=== PATIENT | male | born 1940 | race Caucasian/White ===

== ENCOUNTER 2017-09-29 17:10 | Inpatient (IN) | payer OTHER ==
[2017-09-29 17:41] LABS: ADD MAN DIFF? NO
[2017-09-29 17:43] LABS: WHITE BLOOD COUNT 12.8 10^3/ul (4.8-10.8)
[2017-09-29 17:43] LABS: BASOPHILS % 0.2 % (0.0-2.0); EOSINOPHILS # 0.3 10^3/ul (0.0-0.5); EOSINOPHILS % 2.1 % (0.0-7.0); HEMATOCRIT 40.1 % (42.0-52.0); HEMOGLOBIN 13.5 g/dl (14.0-18.0); LYMPHOCYTES # 1.6 10^3/ul (0.8-2.9); LYMPHOCYTES % 12.7 % (15.0-51.0); MEAN CORPUSCULAR HEMOGLOBIN 31.9 pg (29.0-33.0); MEAN CORPUSCULAR HGB CONC 33.7 g/dl (32.0-37.0); MEAN CORPUSCULAR VOLUME 94.8 fl (82.0-101.0); MEAN PLATELET VOLUME 9.2 fl (7.4-10.4); MONOCYTE # 0.4 10^3/ul (0.3-0.9); MONOCYTES % 3.4 % (0.0-11.0); NEUTROPHIL # 10.4 10^3/ul (1.6-7.5); NEUTROPHILS % 81.4 % (39.0-77.0); PLATELET COUNT 480 10^3/UL (140-415); RED BLOOD COUNT 4.23 10^6/ul (4.70-6.10); RED CELL DISTRIBUTION WIDTH 12.7 % (11.5-14.5)
[2017-09-29] MEDS: SOD CHLORIDE 0.9% 500 ML IV (17:57)
[2017-09-29] MEDS: ONDANSETRON 4 MG INJ IV ×2 (17:58→22:04)
[2017-09-29 18:02] LABS: ALANINE AMINOTRANSFERASE 43 IU/L (13-69); ALKALINE PHOSPHATASE 67 IU/L (42-121); ANION GAP 22 (8-16); ASPARTATE AMINO TRANSFERASE 44 IU/L (15-46); BILIRUBIN,INDIRECT 0.4 mg/dl (0-1.1); BILIRUBIN,TOTAL 0.4 mg/dl (0.2-1.3); BLOOD UREA NITROGEN 19 mg/dl (7-20); CALCIUM 9.8 mg/dl (8.4-10.2); CARBON DIOXIDE 27 mmol/L (21-31); CHLORIDE 99 mmol/L (97-110); GLUCOSE 184 mg/dl (70-220); LIPASE 128 U/L (23-300); POTASSIUM 4.2 mmol/L (3.5-5.1); SODIUM 144 mmol/L (135-144)
[2017-09-29 18:03] LABS: ALBUMIN 4.6 g/dl (3.3-4.9); ALBUMIN/GLOBULIN RATIO 1.21; TOTAL PROTEIN 8.4 g/dl (6.1-8.1)
[2017-09-29 18:58] LABS: TROPONIN-I < 0.010 ng/ml (0.000-0.120)
[2017-09-29] MEDS ORDERED: FAMOTIDINE 20 MG TAB PO (19:09)
[2017-09-29] MEDS ORDERED: LIDOCAINE/MYLANTA 40 ML BTL PO (19:09)
[2017-09-29] MEDS: FAMOTIDINE 20 MG INJ IV (20:15)
[2017-09-29] MEDS ORDERED: ACETAMINOPHEN 325 MG TAB PO (21:30)
[2017-09-29] MEDS: morphine 4 MG/ML VIAL IV (22:04)
[2017-09-29] MEDS: D5W-0.45 NACL + KCL 10 MEQ 1,000 ML IV (23:45)
[2017-09-29] MEDS: PIPER-TAZO 3.375 GM IV (PMX) 100 ML IVPB (23:46)
[2017-09-30] MEDS: PANTOPRAZOLE 40 MG INJ IV (05:50)
[2017-09-30] MEDS: PIPER-TAZO 3.375 GM IV (PMX) 100 ML IVPB ×3 (05:51→21:09)
[2017-09-30 06:04] LABS: ADD MAN DIFF? NO
[2017-09-30 06:16] LABS: BASOPHILS % 0.3 % (0.0-2.0); EOSINOPHILS # 0.3 10^3/ul (0.0-0.5); EOSINOPHILS % 2.7 % (0.0-7.0); HEMATOCRIT 35.3 % (42.0-52.0); HEMOGLOBIN 11.6 g/dl (14.0-18.0); LYMPHOCYTES # 1.4 10^3/ul (0.8-2.9); LYMPHOCYTES % 12.2 % (15.0-51.0); MEAN CORPUSCULAR HEMOGLOBIN 31.6 pg (29.0-33.0); MEAN CORPUSCULAR HGB CONC 32.9 g/dl (32.0-37.0); MEAN CORPUSCULAR VOLUME 96.2 fl (82.0-101.0); MEAN PLATELET VOLUME 9.3 fl (7.4-10.4); MONOCYTE # 0.6 10^3/ul (0.3-0.9); MONOCYTES % 5.6 % (0.0-11.0); NEUTROPHIL # 8.8 10^3/ul (1.6-7.5); NEUTROPHILS % 78.8 % (39.0-77.0); PLATELET COUNT 415 10^3/UL (140-415); RED BLOOD COUNT 3.67 10^6/ul (4.70-6.10); RED CELL DISTRIBUTION WIDTH 12.7 % (11.5-14.5)
[2017-09-30 06:16] LABS: WHITE BLOOD COUNT 11.2 10^3/ul (4.8-10.8)
[2017-09-30 07:11] LABS: ALANINE AMINOTRANSFERASE 37 IU/L (13-69); ALBUMIN 3.8 g/dl (3.3-4.9); ALBUMIN/GLOBULIN RATIO 1.22; ALKALINE PHOSPHATASE 46 IU/L (42-121); ANION GAP 16 (8-16); ASPARTATE AMINO TRANSFERASE 34 IU/L (15-46); BILIRUBIN,INDIRECT 0.4 mg/dl (0-1.1); BILIRUBIN,TOTAL 0.4 mg/dl (0.2-1.3); BLOOD UREA NITROGEN 20 mg/dl (7-20); CALCIUM 8.7 mg/dl (8.4-10.2); CARBON DIOXIDE 29 mmol/L (21-31); CHLORIDE 101 mmol/L (97-110); CREATININE 1.35 mg/dl (0.61-1.24); GLUCOSE 128 mg/dl (70-220); POTASSIUM 3.6 mmol/L (3.5-5.1); SODIUM 142 mmol/L (135-144); TOTAL PROTEIN 6.9 g/dl (6.1-8.1)
[2017-09-30] MEDS: DIATR MEGLU/DIATRIZOATE SODIUM 120 ML BTL (10:43)
[2017-09-30] MEDS ORDERED: HYDROmorphONE 0.5 MG/0.5 ML SYG IV (11:30)
[2017-09-30] MEDS: D5W-0.45 NACL + KCL 10 MEQ 1,000 ML IV ×2 (12:48→20:09)
[2017-09-30] MEDS ORDERED: DEXTROSE 50% 50 ML SYRINGE IV ×2 (19:00)
[2017-09-30] MEDS ORDERED: GLUCOSE GEL 15 GRAM TUBE PO ×2 (19:00)
[2017-09-30] MEDS ORDERED: GLUCOSE GEL 15 GRAM TUBE BUCCAL (19:00)
[2017-09-30] MEDS ORDERED: GLUCAGON 1 MG INJ IM (19:00)
[2017-09-30] MEDS: INSULIN ASPART [NOVOLOG] 3 ML PEN SC (21:00)
[2017-10-01] MEDS: ACCU-CHEK XX (01:03)
[2017-10-01] MEDS ORDERED: ACCU-CHEK XX (02:00)
[2017-10-01] MEDS: D5W-0.45 NACL + KCL 10 MEQ 1,000 ML IV (02:12)
[2017-10-01] MEDS: PIPER-TAZO 3.375 GM IV (PMX) 100 ML IVPB ×3 (05:40→21:03)
[2017-10-01] MEDS: PANTOPRAZOLE 40 MG INJ IV (05:40)
[2017-10-01 05:52] LABS: ADD MAN DIFF? NO
[2017-10-01 05:54] LABS: BASOPHILS % 0.5 % (0.0-2.0); EOSINOPHILS # 0.6 10^3/ul (0.0-0.5); EOSINOPHILS % 7.7 % (0.0-7.0); HEMATOCRIT 34.3 % (42.0-52.0); HEMOGLOBIN 11.1 g/dl (14.0-18.0); LYMPHOCYTES # 1.6 10^3/ul (0.8-2.9); LYMPHOCYTES % 20.3 % (15.0-51.0); MEAN CORPUSCULAR HGB CONC 32.4 g/dl (32.0-37.0); MEAN CORPUSCULAR VOLUME 95.8 fl (82.0-101.0); MEAN PLATELET VOLUME 9.3 fl (7.4-10.4); MONOCYTE # 0.5 10^3/ul (0.3-0.9); MONOCYTES % 6.6 % (0.0-11.0); NEUTROPHIL # 5.2 10^3/ul (1.6-7.5); NEUTROPHILS % 64.5 % (39.0-77.0); PLATELET COUNT 375 10^3/UL (140-415); RED BLOOD COUNT 3.58 10^6/ul (4.70-6.10); RED CELL DISTRIBUTION WIDTH 12.6 % (11.5-14.5)
[2017-10-01 05:54] LABS: WHITE BLOOD COUNT 8.1 10^3/ul (4.8-10.8)
[2017-10-01 06:33] LABS: ANION GAP 13 (8-16); BLOOD UREA NITROGEN 20 mg/dl (7-20); CALCIUM 8.8 mg/dl (8.4-10.2); CARBON DIOXIDE 27 mmol/L (21-31); CHLORIDE 107 mmol/L (97-110); CREATININE 1.33 mg/dl (0.61-1.24); GLUCOSE 113 mg/dl (70-220); POTASSIUM 3.8 mmol/L (3.5-5.1); SODIUM 143 mmol/L (135-144)
[2017-10-01] MEDS: INSULIN ASPART [NOVOLOG] 3 ML PEN SC ×4 (08:09→21:00)
[2017-10-01] MEDS: AMLODIPINE 10 MG TAB PO (13:37)
[2017-10-01 14:18] LABS: ANION GAP 14 (8-16); BLOOD UREA NITROGEN 18 mg/dl (7-20); CALCIUM 8.8 mg/dl (8.4-10.2); CARBON DIOXIDE 26 mmol/L (21-31); CHLORIDE 107 mmol/L (97-110); CREATININE 1.26 mg/dl (0.61-1.24); GLUCOSE 135 mg/dl (70-220); POTASSIUM 4.4 mmol/L (3.5-5.1); SODIUM 143 mmol/L (135-144)
[2017-10-01] MEDS ORDERED: BIMATOPROST 0.01% 2.5 ML BTL BOTH EYES (21:00)
[2017-10-01] MEDS: LATANOPROST 0.005% 2.5 ML OPH BOTH EYES (21:03)
[2017-10-01] MEDS: ATORVASTATIN 10 MG TAB PO (21:03)
[2017-10-02] MEDS: ACCU-CHEK XX (01:03)
[2017-10-02] MEDS: PIPER-TAZO 3.375 GM IV (PMX) 100 ML IVPB ×2 (05:26→13:57)
[2017-10-02] MEDS: PANTOPRAZOLE (EC) 40 MG TAB PO (05:26)
[2017-10-02 05:55] LABS: ADD MAN DIFF? NO
[2017-10-02 06:06] LABS: BASOPHIL # 0.1 10^3/ul (0.0-0.1); EOSINOPHILS # 0.7 10^3/ul (0.0-0.5); HEMATOCRIT 33.2 % (42.0-52.0); LYMPHOCYTES # 1.9 10^3/ul (0.8-2.9); LYMPHOCYTES % 24.2 % (15.0-51.0); MEAN CORPUSCULAR HEMOGLOBIN 32.1 pg (29.0-33.0); MEAN CORPUSCULAR HGB CONC 33.1 g/dl (32.0-37.0); MEAN CORPUSCULAR VOLUME 96.8 fl (82.0-101.0); MEAN PLATELET VOLUME 9.4 fl (7.4-10.4); MONOCYTE # 0.6 10^3/ul (0.3-0.9); MONOCYTES % 6.9 % (0.0-11.0); NEUTROPHIL # 4.7 10^3/ul (1.6-7.5); NEUTROPHILS % 58.5 % (39.0-77.0); PLATELET COUNT 385 10^3/UL (140-415); RED BLOOD COUNT 3.43 10^6/ul (4.70-6.10); RED CELL DISTRIBUTION WIDTH 12.4 % (11.5-14.5)
[2017-10-02] MEDS: INSULIN ASPART [NOVOLOG] 3 ML PEN SC ×2 (07:52→12:00)
[2017-10-02] MEDS: AMLODIPINE 10 MG TAB PO (07:52)
[2017-10-02 14:41] LABS: HEMOGLOBIN A1C 6.2 % (0-5.9)
== END 2017-10-02 15:30 | disposition home or self-care (01) | DRG 389 ==
LOC: E/R 17:10 → MS2 21:05
DX: K56.609 Unspecified intestinal obstruction, unspecified as to partial versus complete obstruction (principal); R65.10 Systemic inflammatory response syndrome (SIRS) of non-infectious origin without acute organ dysfunction; E11.9 Type 2 diabetes mellitus without complications; K76.0 Fatty (change of) liver, not elsewhere classified; I10 Essential (primary) hypertension; K20.9 Esophagitis, unspecified; I25.10 Atherosclerotic heart disease of native coronary artery without angina pectoris; E78.5 Hyperlipidemia, unspecified; E66.3 Overweight; Z68.28 Body mass index [BMI] 28.0-28.9, adult; Z79.4 Long term (current) use of insulin; Z90.79 Acquired absence of other genital organ(s)
CPT/HCPCS: 36415; 74018; 74176; 74250; 80048; 80053; 82962; 83036; 83690; 84484; 85025; 93005; 96374; 96375; 99285-25

== ENCOUNTER 2017-10-13 19:34 | Emergency (ER) | payer OTHER ==
[2017-10-13] MEDS: ONDANSETRON 4 MG INJ IV (21:18)
[2017-10-13] MEDS: morphine 4 MG/ML VIAL IV (21:18)
[2017-10-13] MEDS: CEFTRIAXONE 1 GM/50 ML (PMX) 50 ML IVPB (21:18)
[2017-10-13] MEDS: ACETAMINOPHEN 325 MG TAB PO (21:18)
[2017-10-13] MEDS: SODIUM CHLORIDE 0.9% 1L BAG IV* (21:24)
[2017-10-13 21:30] LABS: ADD MAN DIFF? NO
[2017-10-13 21:36] LABS: BASOPHILS % 0.4 % (0.0-2.0); EOSINOPHILS # 0.4 10^3/ul (0.0-0.5); EOSINOPHILS % 4.5 % (0.0-7.0); HEMATOCRIT 36.1 % (42.0-52.0); HEMOGLOBIN 11.9 g/dl (14.0-18.0); LYMPHOCYTES % 10.8 % (15.0-51.0); MEAN CORPUSCULAR HEMOGLOBIN 31.4 pg (29.0-33.0); MEAN CORPUSCULAR VOLUME 95.3 fl (82.0-101.0); MONOCYTE # 0.7 10^3/ul (0.3-0.9); MONOCYTES % 7.9 % (0.0-11.0); NEUTROPHIL # 6.8 10^3/ul (1.6-7.5); PLATELET COUNT 253 10^3/UL (140-415); RED BLOOD COUNT 3.79 10^6/ul (4.70-6.10); RED CELL DISTRIBUTION WIDTH 12.9 % (11.5-14.5)
[2017-10-13 21:40] LABS: ADD UMIC YES; UR ASCORBIC ACID NEGATIVE (NEGATIVE); UR BILIRUBIN (Dip) NEGATIVE (NEGATIVE); UR BLOOD (Dip) NEGATIVE (NEGATIVE); UR CLARITY CLEAR (CLEAR); UR COLOR YELLOW (YELLOW); UR GLUCOSE (Dip) NEGATIVE (NEGATIVE); UR KETONES (Dip) NEGATIVE (NEGATIVE); UR LEUKOCYTE ESTERASE (Dip) TRACE Leu/ul (NEGATIVE); UR NITRITE (Dip) NEGATIVE (NEGATIVE); UR RBC 2 /HPF (0-5); UR TOTAL PROTEIN (Dip) NEGATIVE (NEGATIVE); UR UROBILINOGEN (Dip) NEGATIVE (NEGATIVE); UR WBC 4 /HPF (0-5)
[2017-10-13 21:55] LABS: INR 1.02; PROTIME 13.5 Sec (11.9-14.9); PT RATIO 1.1
[2017-10-13 21:56] LABS: PARTIAL THROMBOPLASTIN TIME 31.5 Sec (25.0-35.0)
[2017-10-13 21:58] LABS: LACTIC ACID 1.6 mmol/L (0.5-2.0)
[2017-10-13 21:59] LABS: ALANINE AMINOTRANSFERASE 19 IU/L (13-69); ALBUMIN 4.4 g/dl (3.3-4.9); ALBUMIN/GLOBULIN RATIO 1.29; ALKALINE PHOSPHATASE 43 IU/L (42-121); ANION GAP 15 (8-16); ASPARTATE AMINO TRANSFERASE 22 IU/L (15-46); BILIRUBIN,INDIRECT 0.3 mg/dl (0-1.1); BILIRUBIN,TOTAL 0.3 mg/dl (0.2-1.3); BLOOD UREA NITROGEN 30 mg/dl (7-20); CALCIUM 9.4 mg/dl (8.4-10.2); CARBON DIOXIDE 26 mmol/L (21-31); CHLORIDE 102 mmol/L (97-110); GLUCOSE 143 mg/dl (70-220); POTASSIUM 3.7 mmol/L (3.5-5.1); SODIUM 139 mmol/L (135-144); TOTAL PROTEIN 7.8 g/dl (6.1-8.1)
[2017-10-13 22:10] LABS: TROPONIN-I < 0.010 ng/ml (0.000-0.120)
== END 2017-10-13 23:35 | disposition home or self-care (01) ==
LOC: E/R 23:35 → FTE 19:34
DX: N30.90 Cystitis, unspecified without hematuria (principal); E11.9 Type 2 diabetes mellitus without complications; I10 Essential (primary) hypertension; Z96.651 Presence of right artificial knee joint; Z79.84 Long term (current) use of oral hypoglycemic drugs
CPT/HCPCS: 36415; 71045; 74176; 80053; 81001; 83605; 84484; 85025; 85610; 85730; 87040; 87086; 93005; 96374; 96375; 99285-25

== ENCOUNTER 2018-06-13 09:39 | Inpatient (IN) | payer OTHER ==
[2018-06-13 10:23] LABS: ADD MAN DIFF? NO
[2018-06-13 10:25] LABS: WHITE BLOOD COUNT 14.6 10^3/ul (4.8-10.8)
[2018-06-13 10:25] LABS: BASOPHILS % 0.3 % (0.0-2.0); EOSINOPHILS % 0.1 % (0.0-7.0); HEMATOCRIT 37.2 % (42.0-52.0); HEMOGLOBIN 12.6 g/dl (14.0-18.0); LYMPHOCYTES # 1.3 10^3/ul (0.8-2.9); LYMPHOCYTES % 8.8 % (15.0-51.0); MEAN CORPUSCULAR HEMOGLOBIN 30.4 pg (29.0-33.0); MEAN CORPUSCULAR HGB CONC 33.9 g/dl (32.0-37.0); MEAN CORPUSCULAR VOLUME 89.9 fl (82.0-101.0); MEAN PLATELET VOLUME 10.5 fl (7.4-10.4); MONOCYTE # 0.9 10^3/ul (0.3-0.9); NEUTROPHIL # 12.3 10^3/ul (1.6-7.5); PLATELET COUNT 218 10^3/UL (140-415); RED BLOOD COUNT 4.14 10^6/ul (4.70-6.10); RED CELL DISTRIBUTION WIDTH 12.5 % (11.5-14.5)
[2018-06-13 10:27] LABS: ADD UMIC NO; UR ASCORBIC ACID NEGATIVE (NEGATIVE); UR BILIRUBIN (Dip) NEGATIVE (NEGATIVE); UR BLOOD (Dip) NEGATIVE (NEGATIVE); UR CLARITY CLEAR (CLEAR); UR COLOR YELLOW (YELLOW); UR GLUCOSE (Dip) NEGATIVE (NEGATIVE); UR KETONES (Dip) NEGATIVE (NEGATIVE); UR LEUKOCYTE ESTERASE (Dip) NEGATIVE Leu/ul (NEGATIVE); UR NITRITE (Dip) NEGATIVE (NEGATIVE); UR SPECIFIC GRAVITY (Dip) 1.016 (1.003-1.030); UR TOTAL PROTEIN (Dip) NEGATIVE (NEGATIVE); UR UROBILINOGEN (Dip) NEGATIVE (NEGATIVE)
[2018-06-13] MEDS: SODIUM CHLORIDE 0.9% 1L BAG IV* (10:31)
[2018-06-13] MEDS: CEFTRIAXONE 1 GM/50 ML (PMX) 50 ML IVPB (10:31)
[2018-06-13 10:44] LABS: ALANINE AMINOTRANSFERASE 19 IU/L (13-69); ALBUMIN 4.3 g/dl (3.3-4.9); ALKALINE PHOSPHATASE 57 IU/L (42-121); ANION GAP 14 (5-13); ASPARTATE AMINO TRANSFERASE 24 IU/L (15-46); BILIRUBIN,INDIRECT 0.8 mg/dl (0-1.1); BILIRUBIN,TOTAL 0.8 mg/dl (0.2-1.3); BLOOD UREA NITROGEN 20 mg/dl (7-20); CALCIUM 9.5 mg/dl (8.4-10.2); CARBON DIOXIDE 26 mmol/L (21-31); CHLORIDE 98 mmol/L (97-110); CREATININE 1.37 mg/dl (0.61-1.24); GLUCOSE 175 mg/dl (70-220); POTASSIUM 3.5 mmol/L (3.5-5.1); SODIUM 138 mmol/L (135-144); TOTAL PROTEIN 8.2 g/dl (6.1-8.1)
[2018-06-13 10:45] LABS: INR 1.11; PROTIME 14.4 Sec (11.9-14.9); PT RATIO 1.1
[2018-06-13 10:46] LABS: PARTIAL THROMBOPLASTIN TIME 35.4 Sec (23.0-35.0)
[2018-06-13 10:47] LABS: LACTIC ACID 1.5 mmol/L (0.5-2.0)
[2018-06-13] MEDS: ACETAMINOPHEN 500 MG TAB PO (10:52)
[2018-06-13 10:55] LABS: TROPONIN-I < 0.012 ng/ml (0.000-0.120)
[2018-06-13 15:11] LABS: LACTIC ACID 1.3 mmol/L (0.5-2.0)
[2018-06-13] MEDS: ACCU-CHEK XX ×2 (17:30→21:00)
[2018-06-13] MEDS ORDERED: GLUCOSE GEL 15 GRAM TUBE BUCCAL (17:30)
[2018-06-13] MEDS ORDERED: GLUCOSE GEL 15 GRAM TUBE PO ×2 (17:30)
[2018-06-13] MEDS ORDERED: DEXTROSE 50% 50 ML SYRINGE IV ×2 (17:30)
[2018-06-13] MEDS ORDERED: VANCOMYCIN IV PER PHARMACY XX (17:30)
[2018-06-13] MEDS ORDERED: GLUCAGON 1 MG INJ IM (17:30)
[2018-06-13] MEDS: INSULIN ASPART [NOVOLOG] 3 ML PEN SC ×2 (17:50→20:44)
[2018-06-13 17:52] LABS: THYROID STIMULATING HORMONE 0.736 MIU/L (0.465-4.680)
[2018-06-13] MEDS: metFORMIN 500 MG TAB PO (18:07)
[2018-06-13] MEDS: LEVOFLOXACIN 500MG/D5W (PMX) 100 ML IVPB (18:38)
[2018-06-13] MEDS: VANCOMYCIN HCL 1.75 GM in SOD CHLORIDE 0.9% 500 ML IVPB (19:57)
[2018-06-13] MEDS: ACETAMINOPHEN 325 MG TAB PO (19:58)
[2018-06-13] MEDS: ATORVASTATIN 10 MG TAB PO (20:41)
[2018-06-13] MEDS: BIMATOPROST 0.01% 2.5 ML BTL BOTH EYES (20:43)
[2018-06-14] MEDS: traMADol 50 MG TAB PO ×2 (00:18→21:33)
[2018-06-14] MEDS: ACCU-CHEK XX ×5 (01:07→21:00)
[2018-06-14] MEDS: ACETAMINOPHEN 325 MG TAB PO ×3 (02:23→19:41)
[2018-06-14 05:58] LABS: ADD MAN DIFF? NO
[2018-06-14 06:21] LABS: WHITE BLOOD COUNT 12.6 10^3/ul (4.8-10.8)
[2018-06-14 06:21] LABS: BASOPHIL # 0.1 10^3/ul (0.0-0.1); BASOPHILS % 0.5 % (0.0-2.0); EOSINOPHILS % 0.2 % (0.0-7.0); HEMATOCRIT 33.6 % (42.0-52.0); HEMOGLOBIN 11.2 g/dl (14.0-18.0); LYMPHOCYTES % 7.6 % (15.0-51.0); MEAN CORPUSCULAR HEMOGLOBIN 30.6 pg (29.0-33.0); MEAN CORPUSCULAR HGB CONC 33.3 g/dl (32.0-37.0); MEAN CORPUSCULAR VOLUME 91.8 fl (82.0-101.0); MEAN PLATELET VOLUME 10.9 fl (7.4-10.4); MONOCYTES % 7.6 % (0.0-11.0); NEUTROPHIL # 10.5 10^3/ul (1.6-7.5); NEUTROPHILS % 83.3 % (39.0-77.0); PLATELET COUNT 195 10^3/UL (140-415); RED BLOOD COUNT 3.66 10^6/ul (4.70-6.10); RED CELL DISTRIBUTION WIDTH 12.6 % (11.5-14.5)
[2018-06-14 06:53] LABS: ANION GAP 14 (5-13); BLOOD UREA NITROGEN 19 mg/dl (7-20); CALCIUM 8.7 mg/dl (8.4-10.2); CARBON DIOXIDE 26 mmol/L (21-31); CHLORIDE 100 mmol/L (97-110); CREATININE 1.25 mg/dl (0.61-1.24); GLUCOSE 120 mg/dl (70-220); MAGNESIUM 1.7 mg/dl (1.7-2.5); PHOSPHORUS 2.8 mg/dl (2.5-4.9); POTASSIUM 3.3 mmol/L (3.5-5.1); SODIUM 140 mmol/L (135-144)
[2018-06-14] MEDS: INSULIN ASPART [NOVOLOG] 3 ML PEN SC ×4 (08:00→21:00)
[2018-06-14] MEDS: BENAZEPRIL 40 MG TAB PO (08:44)
[2018-06-14] MEDS: metFORMIN 500 MG TAB PO ×2 (08:44→17:15)
[2018-06-14] MEDS: AMLODIPINE 10 MG TAB PO (08:44)
[2018-06-14] MEDS: HYDROCHLOROTHIAZIDE 25 MG TAB PO (08:44)
[2018-06-14 15:51] LABS: C-REACTIVE PROTEIN 25.4 mg/dl (0.0-0.9)
[2018-06-14 16:01] LABS: ERYTHROCYTE SEDIMENTATION RATE 65 mm/Hr (0-20)
[2018-06-14] MEDS: POTASSIUM CHLORIDE (SR) 20 MEQ TAB PO (17:16)
[2018-06-14] MEDS: LEVOFLOXACIN 500MG/D5W (PMX) 100 ML IVPB (17:17)
[2018-06-14] MEDS: VANCOMYCIN HCL 1.5 GM in SOD CHLORIDE 0.9% 250 ML IVPB (21:31)
[2018-06-14] MEDS: ATORVASTATIN 10 MG TAB PO (21:32)
[2018-06-14] MEDS: BIMATOPROST 0.01% 2.5 ML BTL BOTH EYES (21:33)
[2018-06-15] MEDS: ACCU-CHEK XX ×5 (01:35→21:00)
[2018-06-15 06:02] LABS: ADD MAN DIFF? NO
[2018-06-15 06:03] LABS: BASOPHILS % 0.4 % (0.0-2.0); EOSINOPHILS # 0.2 10^3/ul (0.0-0.5); EOSINOPHILS % 1.5 % (0.0-7.0); HEMATOCRIT 34.6 % (42.0-52.0); HEMOGLOBIN 11.5 g/dl (14.0-18.0); LYMPHOCYTES # 1.2 10^3/ul (0.8-2.9); LYMPHOCYTES % 11.6 % (15.0-51.0); MEAN CORPUSCULAR HEMOGLOBIN 30.3 pg (29.0-33.0); MEAN CORPUSCULAR HGB CONC 33.2 g/dl (32.0-37.0); MEAN CORPUSCULAR VOLUME 91.3 fl (82.0-101.0); MEAN PLATELET VOLUME 10.7 fl (7.4-10.4); MONOCYTE # 0.9 10^3/ul (0.3-0.9); MONOCYTES % 8.5 % (0.0-11.0); NEUTROPHIL # 8.2 10^3/ul (1.6-7.5); NEUTROPHILS % 77.4 % (39.0-77.0); PLATELET COUNT 217 10^3/UL (140-415); RED BLOOD COUNT 3.79 10^6/ul (4.70-6.10); RED CELL DISTRIBUTION WIDTH 12.8 % (11.5-14.5)
[2018-06-15 06:03] LABS: WHITE BLOOD COUNT 10.6 10^3/ul (4.8-10.8)
[2018-06-15 06:26] LABS: ANION GAP 10 (5-13); BLOOD UREA NITROGEN 20 mg/dl (7-20); CALCIUM 9.3 mg/dl (8.4-10.2); CARBON DIOXIDE 27 mmol/L (21-31); CHLORIDE 102 mmol/L (97-110); CREATININE 1.34 mg/dl (0.61-1.24); GLUCOSE 114 mg/dl (70-220); POTASSIUM 4.3 mmol/L (3.5-5.1); SODIUM 139 mmol/L (135-144)
[2018-06-15] MEDS: INSULIN ASPART [NOVOLOG] 3 ML PEN SC ×4 (08:00→21:00)
[2018-06-15] MEDS: AMLODIPINE 10 MG TAB PO (08:12)
[2018-06-15] MEDS: metFORMIN 500 MG TAB PO ×2 (08:12→17:28)
[2018-06-15] MEDS: HYDROCHLOROTHIAZIDE 25 MG TAB PO (08:12)
[2018-06-15] MEDS: BENAZEPRIL 40 MG TAB PO (08:12)
[2018-06-15] MEDS: ACETAMINOPHEN 325 MG TAB PO ×3 (12:07→22:53)
[2018-06-15 14:08] LABS: HAAIG REFLEX REFLEX FILED
[2018-06-15] MEDS: BARIUM SULF 2% 450 ML BTL (BERRY SMOOTHIE) PO (14:25)
[2018-06-15 14:57] LABS: D-DIMER 765.05 ng/ml (<460)
[2018-06-15 15:04] LABS: HEPATITIS B SURFACE ANTIGEN NEGATIVE (NEGATIVE)
[2018-06-15] MEDS: IOHEXOL 14.3 MG(I)/ML (ADULT) BTL PO (15:20)
[2018-06-15 15:22] LABS: HEPATITIS B CORE ANTIBODY REACTIVE (NEGATIVE); HEPATITIS C VIRAL ANTIBODY NEGATIVE (NEGATIVE)
[2018-06-15] MEDS: BIMATOPROST 0.01% 2.5 ML BTL BOTH EYES (21:27)
[2018-06-15] MEDS: ATORVASTATIN 10 MG TAB PO (21:27)
[2018-06-15] MEDS: CEFEPIME 1GM/50 ML (PMX) 50 ML IVPB (21:27)
[2018-06-15] MEDS: VANCOMYCIN HCL 1.5 GM in SOD CHLORIDE 0.9% 250 ML IVPB (22:19)
[2018-06-15] MEDS: ZOLPIDEM 5 MG TAB PO (22:53)
[2018-06-16] MEDS: ACCU-CHEK XX ×5 (01:03→20:27)
[2018-06-16] MEDS: ACETAMINOPHEN 325 MG TAB PO ×3 (03:18→18:11)
[2018-06-16 07:08] LABS: ADD MAN DIFF? NO
[2018-06-16 07:14] LABS: WHITE BLOOD COUNT 8.2 10^3/ul (4.8-10.8)
[2018-06-16 07:14] LABS: BASOPHILS % 0.5 % (0.0-2.0); EOSINOPHILS # 0.1 10^3/ul (0.0-0.5); EOSINOPHILS % 1.6 % (0.0-7.0); HEMATOCRIT 33.4 % (42.0-52.0); HEMOGLOBIN 11.3 g/dl (14.0-18.0); LYMPHOCYTES % 11.8 % (15.0-51.0); MEAN CORPUSCULAR HEMOGLOBIN 30.9 pg (29.0-33.0); MEAN CORPUSCULAR HGB CONC 33.8 g/dl (32.0-37.0); MEAN CORPUSCULAR VOLUME 91.3 fl (82.0-101.0); MEAN PLATELET VOLUME 10.5 fl (7.4-10.4); MONOCYTE # 0.9 10^3/ul (0.3-0.9); MONOCYTES % 11.2 % (0.0-11.0); NEUTROPHIL # 6.1 10^3/ul (1.6-7.5); NEUTROPHILS % 74.4 % (39.0-77.0); PLATELET COUNT 243 10^3/UL (140-415); RED BLOOD COUNT 3.66 10^6/ul (4.70-6.10); RED CELL DISTRIBUTION WIDTH 12.9 % (11.5-14.5)
[2018-06-16 07:38] LABS: ANION GAP 9 (5-13); BLOOD UREA NITROGEN 20 mg/dl (7-20); CALCIUM 9.4 mg/dl (8.4-10.2); CARBON DIOXIDE 29 mmol/L (21-31); CHLORIDE 101 mmol/L (97-110); GLUCOSE 107 mg/dl (70-220); POTASSIUM 3.9 mmol/L (3.5-5.1); SODIUM 139 mmol/L (135-144)
[2018-06-16] MEDS: metFORMIN 500 MG TAB PO (08:00)
[2018-06-16] MEDS: INSULIN ASPART [NOVOLOG] 3 ML PEN SC ×4 (08:00→20:21)
[2018-06-16] MEDS: BENAZEPRIL 40 MG TAB PO (08:24)
[2018-06-16] MEDS: HYDROCHLOROTHIAZIDE 25 MG TAB PO (08:24)
[2018-06-16] MEDS: AMLODIPINE 10 MG TAB PO (08:25)
[2018-06-16] MEDS: ENOXAPARIN 40 MG/0.4 ML SYG SC (08:25)
[2018-06-16] MEDS: CEFEPIME 1GM/50 ML (PMX) 50 ML IVPB (08:25)
[2018-06-16] MEDS: MEROPENEM 1 GM/50ML(PMX) 50 ML IVPB ×2 (15:06→20:22)
[2018-06-16] MEDS: SOD CHLORIDE 0.9% 1,000 ML IV ×2 (15:57→20:24)
[2018-06-16] MEDS: BIMATOPROST 0.01% 2.5 ML BTL BOTH EYES (20:22)
[2018-06-16] MEDS: ATORVASTATIN 10 MG TAB PO (20:23)
[2018-06-16] MEDS: LACTOBACILLUS RHAMNOSUS CAP PO (20:23)
[2018-06-16 20:45] LABS: VANCOMYCIN,TROUGH 9.7 ug/ml (10.0-20.0)
[2018-06-16] MEDS: VANCOMYCIN HCL 1.5 GM in SOD CHLORIDE 0.9% 250 ML IVPB (21:08)
[2018-06-16] MEDS: ZOLPIDEM 5 MG TAB PO (22:27)
[2018-06-17] MEDS: ACCU-CHEK XX ×5 (01:02→21:20)
[2018-06-17] MEDS: ACETAMINOPHEN 325 MG TAB PO ×4 (01:41→16:21)
[2018-06-17 07:35] LABS: ADD MAN DIFF? NO
[2018-06-17 07:37] LABS: WHITE BLOOD COUNT 9.2 10^3/ul (4.8-10.8)
[2018-06-17 07:37] LABS: BASOPHILS % 0.4 % (0.0-2.0); EOSINOPHILS # 0.2 10^3/ul (0.0-0.5); EOSINOPHILS % 1.7 % (0.0-7.0); HEMATOCRIT 32.7 % (42.0-52.0); HEMOGLOBIN 10.9 g/dl (14.0-18.0); LYMPHOCYTES # 1.3 10^3/ul (0.8-2.9); LYMPHOCYTES % 14.3 % (15.0-51.0); MEAN CORPUSCULAR HEMOGLOBIN 30.8 pg (29.0-33.0); MEAN CORPUSCULAR HGB CONC 33.3 g/dl (32.0-37.0); MEAN CORPUSCULAR VOLUME 92.4 fl (82.0-101.0); MEAN PLATELET VOLUME 10.3 fl (7.4-10.4); MONOCYTE # 1.1 10^3/ul (0.3-0.9); MONOCYTES % 11.8 % (0.0-11.0); NEUTROPHIL # 6.5 10^3/ul (1.6-7.5); NEUTROPHILS % 70.9 % (39.0-77.0); PLATELET COUNT 267 10^3/UL (140-415); RED BLOOD COUNT 3.54 10^6/ul (4.70-6.10)
[2018-06-17] MEDS: INSULIN ASPART [NOVOLOG] 3 ML PEN SC ×4 (08:00→20:07)
[2018-06-17] MEDS: BENAZEPRIL 40 MG TAB PO (08:07)
[2018-06-17] MEDS: AMLODIPINE 10 MG TAB PO (08:07)
[2018-06-17] MEDS: MEROPENEM 1 GM/50ML(PMX) 50 ML IVPB ×2 (08:07→20:07)
[2018-06-17] MEDS: LACTOBACILLUS RHAMNOSUS CAP PO ×2 (08:07→20:08)
[2018-06-17 08:08] LABS: ALANINE AMINOTRANSFERASE 73 IU/L (13-69); ALBUMIN 3.6 g/dl (3.3-4.9); ALBUMIN/GLOBULIN RATIO 1.05; ALKALINE PHOSPHATASE 107 IU/L (42-121); ANION GAP 8 (5-13); ASPARTATE AMINO TRANSFERASE 72 IU/L (15-46); BILIRUBIN,INDIRECT 0.6 mg/dl (0-1.1); BILIRUBIN,TOTAL 0.6 mg/dl (0.2-1.3); BLOOD UREA NITROGEN 22 mg/dl (7-20); CARBON DIOXIDE 28 mmol/L (21-31); CHLORIDE 103 mmol/L (97-110); CREATININE 1.51 mg/dl (0.61-1.24); GLUCOSE 107 mg/dl (70-220); POTASSIUM 3.8 mmol/L (3.5-5.1); SODIUM 139 mmol/L (135-144)
[2018-06-17] MEDS: ENOXAPARIN 40 MG/0.4 ML SYG SC (08:14)
[2018-06-17 08:35] LABS: PROSTATE SPECIFIC ANTIGEN 0.5 ng/ml (0.0-4.0)
[2018-06-17] MEDS: SOD CHLORIDE 0.9% 1,000 ML IV ×2 (12:18→22:00)
[2018-06-17] MEDS: ATORVASTATIN 10 MG TAB PO (20:08)
[2018-06-17] MEDS: BIMATOPROST 0.01% 2.5 ML BTL BOTH EYES (20:08)
[2018-06-17] MEDS: VANCOMYCIN HCL 1.75 GM in SOD CHLORIDE 0.9% 500 ML IVPB (21:27)
[2018-06-17] MEDS: ZOLPIDEM 5 MG TAB PO (22:26)
[2018-06-18] MEDS: ACCU-CHEK XX ×5 (01:13→21:00)
[2018-06-18] MEDS: ACETAMINOPHEN 325 MG TAB PO ×4 (02:04→21:07)
[2018-06-18] MEDS: SOD CHLORIDE 0.9% 1,000 ML IV ×2 (04:05→14:34)
[2018-06-18 06:13] LABS: ADD MAN DIFF? NO
[2018-06-18 06:20] LABS: BASOPHILS % 0.5 % (0.0-2.0); EOSINOPHILS # 0.1 10^3/ul (0.0-0.5); EOSINOPHILS % 1.4 % (0.0-7.0); HEMATOCRIT 30.3 % (42.0-52.0); HEMOGLOBIN 10.2 g/dl (14.0-18.0); LYMPHOCYTES # 1.2 10^3/ul (0.8-2.9); LYMPHOCYTES % 14.1 % (15.0-51.0); MEAN CORPUSCULAR HEMOGLOBIN 30.8 pg (29.0-33.0); MEAN CORPUSCULAR HGB CONC 33.7 g/dl (32.0-37.0); MEAN CORPUSCULAR VOLUME 91.5 fl (82.0-101.0); MEAN PLATELET VOLUME 9.5 fl (7.4-10.4); MONOCYTE # 0.9 10^3/ul (0.3-0.9); MONOCYTES % 11.2 % (0.0-11.0); NEUTROPHILS % 72.1 % (39.0-77.0); PLATELET COUNT 276 10^3/UL (140-415); RED BLOOD COUNT 3.31 10^6/ul (4.70-6.10)
[2018-06-18 06:20] LABS: WHITE BLOOD COUNT 8.3 10^3/ul (4.8-10.8)
[2018-06-18 06:42] LABS: ALANINE AMINOTRANSFERASE 85 IU/L (13-69); ALBUMIN 3.2 g/dl (3.3-4.9); ALBUMIN/GLOBULIN RATIO 0.94; ALKALINE PHOSPHATASE 103 IU/L (42-121); ANION GAP 8 (5-13); ASPARTATE AMINO TRANSFERASE 73 IU/L (15-46); BILIRUBIN,INDIRECT 0.4 mg/dl (0-1.1); BILIRUBIN,TOTAL 0.4 mg/dl (0.2-1.3); BLOOD UREA NITROGEN 18 mg/dl (7-20); CALCIUM 8.7 mg/dl (8.4-10.2); CARBON DIOXIDE 25 mmol/L (21-31); CHLORIDE 107 mmol/L (97-110); CREATININE 1.17 mg/dl (0.61-1.24); GLUCOSE 111 mg/dl (70-220); POTASSIUM 3.5 mmol/L (3.5-5.1); SODIUM 140 mmol/L (135-144); TOTAL PROTEIN 6.6 g/dl (6.1-8.1)
[2018-06-18] MEDS: INSULIN ASPART [NOVOLOG] 3 ML PEN SC ×4 (08:00→21:00)
[2018-06-18] MEDS: AMLODIPINE 10 MG TAB PO (08:21)
[2018-06-18] MEDS: BENAZEPRIL 40 MG TAB PO (08:21)
[2018-06-18] MEDS: LACTOBACILLUS RHAMNOSUS CAP PO ×2 (08:21→20:30)
[2018-06-18] MEDS: MEROPENEM 1 GM/50ML(PMX) 50 ML IVPB ×2 (08:21→20:30)
[2018-06-18] MEDS: ENOXAPARIN 40 MG/0.4 ML SYG SC (08:22)
[2018-06-18] MEDS: ATORVASTATIN 10 MG TAB PO (20:30)
[2018-06-18] MEDS: LATANOPROST 0.005% 2.5 ML OPH BOTH EYES (21:00)
[2018-06-18] MEDS: VANCOMYCIN HCL 1.75 GM in SOD CHLORIDE 0.9% 500 ML IVPB (21:09)
[2018-06-18] MEDS: ZOLPIDEM 5 MG TAB PO (22:52)
[2018-06-19] MEDS: ACCU-CHEK XX ×6 (02:00→20:44)
[2018-06-19 07:21] LABS: ADD MAN DIFF? NO
[2018-06-19 07:25] LABS: BASOPHIL # 0.1 10^3/ul (0.0-0.1); BASOPHILS % 0.7 % (0.0-2.0); EOSINOPHILS # 0.1 10^3/ul (0.0-0.5); EOSINOPHILS % 1.7 % (0.0-7.0); HEMATOCRIT 30.7 % (42.0-52.0); HEMOGLOBIN 10.2 g/dl (14.0-18.0); LYMPHOCYTES # 1.1 10^3/ul (0.8-2.9); LYMPHOCYTES % 14.5 % (15.0-51.0); MEAN CORPUSCULAR HEMOGLOBIN 30.4 pg (29.0-33.0); MEAN CORPUSCULAR HGB CONC 33.2 g/dl (32.0-37.0); MEAN CORPUSCULAR VOLUME 91.4 fl (82.0-101.0); MEAN PLATELET VOLUME 9.7 fl (7.4-10.4); MONOCYTE # 0.8 10^3/ul (0.3-0.9); MONOCYTES % 10.6 % (0.0-11.0); NEUTROPHIL # 5.5 10^3/ul (1.6-7.5); PLATELET COUNT 322 10^3/UL (140-415); RED BLOOD COUNT 3.36 10^6/ul (4.70-6.10); RED CELL DISTRIBUTION WIDTH 13.1 % (11.5-14.5)
[2018-06-19 07:25] LABS: WHITE BLOOD COUNT 7.7 10^3/ul (4.8-10.8)
[2018-06-19 07:40] LABS: HEMOGLOBIN A1C 5.9 % (0-5.9)
[2018-06-19 07:45] LABS: INR 1.12; PROTIME 14.5 Sec (11.9-14.9); PT RATIO 1.1
[2018-06-19 07:46] LABS: PHOSPHORUS 2.8 mg/dl (2.5-4.9)
[2018-06-19 07:46] LABS: PARTIAL THROMBOPLASTIN TIME 38.6 Sec (23.0-35.0)
[2018-06-19 07:54] LABS: ANION GAP 9 (5-13); BLOOD UREA NITROGEN 14 mg/dl (7-20); CALCIUM 8.7 mg/dl (8.4-10.2); CARBON DIOXIDE 24 mmol/L (21-31); CHLORIDE 107 mmol/L (97-110); CREATININE 1.02 mg/dl (0.61-1.24); GLUCOSE 108 mg/dl (70-220); POTASSIUM 3.6 mmol/L (3.5-5.1); SODIUM 140 mmol/L (135-144)
[2018-06-19] MEDS: INSULIN ASPART [NOVOLOG] 3 ML PEN SC ×4 (08:00→20:44)
[2018-06-19 08:13] LABS: CHOL/HDL RATIO 4.5 RATIO; HDL CHOLESTEROL 22 mg/dl (31-75); LDL CHOLESTEROL,CALCULATED 61 mg/dl; TRIGLYCERIDES 89 mg/dl (0-149)
[2018-06-19 08:13] LABS: CHOLESTEROL 101 mg/dl (100-200)
[2018-06-19] MEDS: MEROPENEM 1 GM/50ML(PMX) 50 ML IVPB ×2 (08:43→20:41)
[2018-06-19] MEDS: BENAZEPRIL 40 MG TAB PO (08:44)
[2018-06-19] MEDS: AMLODIPINE 10 MG TAB PO (08:44)
[2018-06-19] MEDS: LACTOBACILLUS RHAMNOSUS CAP PO ×2 (08:44→20:41)
[2018-06-19] MEDS: ACETAMINOPHEN 325 MG TAB PO ×2 (08:47→20:41)
[2018-06-19] MEDS: SOD CHLORIDE 0.9% 500 ML (10:15)
[2018-06-19] MEDS: LIDOCAINE 1% (MDV) 20 ML INJ (10:39)
[2018-06-19] MEDS: FENTAnyl 50 MCG/ML VIAL (10:39)
[2018-06-19] MEDS: traMADol 50 MG TAB PO (11:39)
[2018-06-19 12:39] LABS: FLD RBC 1000 /uL; FLD WBC 2582 /cmm
[2018-06-19 12:59] LABS: FLD CLARITY HAZY; FLD COLOR YELLOW
[2018-06-19 13:02] LABS: FLD TYPE PELVIC
[2018-06-19 16:42] LABS: WEST NILE VIRUS ANTIBODY (IGG) 6.91 index; WEST NILE VIRUS ANTIBODY (IGM) <0.90 index
[2018-06-19] MEDS: morphine 2 MG INJ IV (16:50)
[2018-06-19] MEDS: LATANOPROST 0.005% 2.5 ML OPH BOTH EYES (20:41)
[2018-06-19] MEDS: ATORVASTATIN 10 MG TAB PO (20:41)
[2018-06-19] MEDS: VANCOMYCIN HCL 1.75 GM in SOD CHLORIDE 0.9% 500 ML IVPB (22:47)
[2018-06-20] MEDS: morphine 2 MG INJ IV (00:39)
[2018-06-20 07:23] LABS: ADD MAN DIFF? NO
[2018-06-20 07:26] LABS: WHITE BLOOD COUNT 9.5 10^3/ul (4.8-10.8)
[2018-06-20 07:26] LABS: BASOPHIL # 0.1 10^3/ul (0.0-0.1); BASOPHILS % 0.5 % (0.0-2.0); EOSINOPHILS # 0.2 10^3/ul (0.0-0.5); HEMATOCRIT 32.4 % (42.0-52.0); HEMOGLOBIN 10.7 g/dl (14.0-18.0); LYMPHOCYTES % 10.2 % (15.0-51.0); MEAN CORPUSCULAR HEMOGLOBIN 30.4 pg (29.0-33.0); MEAN PLATELET VOLUME 9.6 fl (7.4-10.4); MONOCYTE # 0.6 10^3/ul (0.3-0.9); MONOCYTES % 6.2 % (0.0-11.0); NEUTROPHIL # 7.7 10^3/ul (1.6-7.5); NEUTROPHILS % 80.7 % (39.0-77.0); PLATELET COUNT 372 10^3/UL (140-415); RED BLOOD COUNT 3.52 10^6/ul (4.70-6.10); RED CELL DISTRIBUTION WIDTH 13.2 % (11.5-14.5)
[2018-06-20] MEDS: ACCU-CHEK XX ×4 (07:30→21:00)
[2018-06-20 07:45] LABS: ANION GAP 11 (5-13); BLOOD UREA NITROGEN 16 mg/dl (7-20); CALCIUM 8.7 mg/dl (8.4-10.2); CARBON DIOXIDE 25 mmol/L (21-31); CHLORIDE 104 mmol/L (97-110); CREATININE 1.02 mg/dl (0.61-1.24); GLUCOSE 98 mg/dl (70-220); POTASSIUM 3.5 mmol/L (3.5-5.1); SODIUM 140 mmol/L (135-144)
[2018-06-20 07:47] LABS: PHOSPHORUS 3.2 mg/dl (2.5-4.9)
[2018-06-20 07:47] LABS: MAGNESIUM 2.1 mg/dl (1.7-2.5)
[2018-06-20] MEDS: INSULIN ASPART [NOVOLOG] 3 ML PEN SC ×4 (08:00→20:32)
[2018-06-20] MEDS: MEROPENEM 1 GM/50ML(PMX) 50 ML IVPB ×2 (09:05→20:31)
[2018-06-20] MEDS: AMLODIPINE 10 MG TAB PO (09:05)
[2018-06-20] MEDS: BENAZEPRIL 40 MG TAB PO (09:05)
[2018-06-20] MEDS: LACTOBACILLUS RHAMNOSUS CAP PO ×2 (09:05→20:32)
[2018-06-20] MEDS: traMADol 50 MG TAB PO (09:14)
[2018-06-20] MEDS: ENOXAPARIN 40 MG/0.4 ML SYG SC (09:15)
[2018-06-20] MEDS: ATORVASTATIN 10 MG TAB PO (20:32)
[2018-06-20] MEDS: LATANOPROST 0.005% 2.5 ML OPH BOTH EYES (20:32)
[2018-06-20 21:03] LABS: VANCOMYCIN,TROUGH 13.2 ug/ml (10.0-20.0)
[2018-06-20] MEDS: VANCOMYCIN HCL 1.75 GM in SOD CHLORIDE 0.9% 500 ML IVPB (21:55)
[2018-06-21] MEDS: traZODone 50 MG TAB PO ×2 (00:26→23:44)
[2018-06-21] MEDS: ACCU-CHEK XX ×5 (02:00→20:37)
[2018-06-21 05:45] LABS: ADD MAN DIFF? NO
[2018-06-21 05:51] LABS: WHITE BLOOD COUNT 9.1 10^3/ul (4.8-10.8)
[2018-06-21 05:51] LABS: BASOPHILS % 0.4 % (0.0-2.0); EOSINOPHILS # 0.2 10^3/ul (0.0-0.5); EOSINOPHILS % 2.5 % (0.0-7.0); HEMATOCRIT 30.6 % (42.0-52.0); HEMOGLOBIN 10.1 g/dl (14.0-18.0); LYMPHOCYTES # 1.2 10^3/ul (0.8-2.9); MEAN CORPUSCULAR HEMOGLOBIN 30.6 pg (29.0-33.0); MEAN CORPUSCULAR VOLUME 92.7 fl (82.0-101.0); MEAN PLATELET VOLUME 9.4 fl (7.4-10.4); MONOCYTE # 0.6 10^3/ul (0.3-0.9); MONOCYTES % 6.2 % (0.0-11.0); NEUTROPHILS % 77.2 % (39.0-77.0); PLATELET COUNT 387 10^3/UL (140-415); RED CELL DISTRIBUTION WIDTH 12.9 % (11.5-14.5)
[2018-06-21 06:27] LABS: PHOSPHORUS 3.3 mg/dl (2.5-4.9)
[2018-06-21 06:27] LABS: MAGNESIUM 2.2 mg/dl (1.7-2.5)
[2018-06-21 06:34] LABS: ANION GAP 7 (5-13); BLOOD UREA NITROGEN 17 mg/dl (7-20); CALCIUM 8.9 mg/dl (8.4-10.2); CARBON DIOXIDE 26 mmol/L (21-31); CHLORIDE 108 mmol/L (97-110); CREATININE 1.07 mg/dl (0.61-1.24); GLUCOSE 100 mg/dl (70-220); POTASSIUM 3.8 mmol/L (3.5-5.1); SODIUM 141 mmol/L (135-144)
[2018-06-21] MEDS: INSULIN ASPART [NOVOLOG] 3 ML PEN SC ×4 (07:57→21:00)
[2018-06-21] MEDS: LACTOBACILLUS RHAMNOSUS CAP PO ×2 (08:32→20:34)
[2018-06-21] MEDS: BENAZEPRIL 40 MG TAB PO (08:32)
[2018-06-21] MEDS: MEROPENEM 1 GM/50ML(PMX) 50 ML IVPB (08:32)
[2018-06-21] MEDS: AMLODIPINE 10 MG TAB PO (08:33)
[2018-06-21] MEDS: ENOXAPARIN 40 MG/0.4 ML SYG SC (08:33)
[2018-06-21 12:48] LABS: PROCALCITONIN 0.25 ng/mL (<0.10)
[2018-06-21 14:43] LABS: HIV 1&2 ANTIBODY NEGATIVE (NEGATIVE)
[2018-06-21] MEDS: traMADol 50 MG TAB PO ×2 (14:56→21:39)
[2018-06-21] MEDS: LATANOPROST 0.005% 2.5 ML OPH BOTH EYES (20:34)
[2018-06-21] MEDS: ATORVASTATIN 10 MG TAB PO (20:34)
[2018-06-21] MEDS: VANCOMYCIN HCL 1.75 GM in SOD CHLORIDE 0.9% 500 ML IVPB (21:39)
[2018-06-22] MEDS: ACCU-CHEK XX ×5 (02:00→20:39)
[2018-06-22] MEDS: traMADol 50 MG TAB PO (05:12)
[2018-06-22 05:39] LABS: ADD MAN DIFF? NO
[2018-06-22 05:50] LABS: BASOPHILS % 0.3 % (0.0-2.0); EOSINOPHILS # 0.2 10^3/ul (0.0-0.5); EOSINOPHILS % 1.8 % (0.0-7.0); HEMATOCRIT 31.1 % (42.0-52.0); HEMOGLOBIN 10.3 g/dl (14.0-18.0); LYMPHOCYTES # 1.1 10^3/ul (0.8-2.9); LYMPHOCYTES % 11.5 % (15.0-51.0); MEAN CORPUSCULAR HEMOGLOBIN 30.3 pg (29.0-33.0); MEAN CORPUSCULAR HGB CONC 33.1 g/dl (32.0-37.0); MEAN CORPUSCULAR VOLUME 91.5 fl (82.0-101.0); MEAN PLATELET VOLUME 9.2 fl (7.4-10.4); MONOCYTE # 0.6 10^3/ul (0.3-0.9); MONOCYTES % 6.3 % (0.0-11.0); NEUTROPHIL # 7.6 10^3/ul (1.6-7.5); NEUTROPHILS % 79.8 % (39.0-77.0); PLATELET COUNT 410 10^3/UL (140-415); RED CELL DISTRIBUTION WIDTH 12.8 % (11.5-14.5)
[2018-06-22 05:50] LABS: WHITE BLOOD COUNT 9.6 10^3/ul (4.8-10.8)
[2018-06-22 06:30] LABS: ANION GAP 10 (5-13); BLOOD UREA NITROGEN 18 mg/dl (7-20); CALCIUM 8.9 mg/dl (8.4-10.2); CARBON DIOXIDE 27 mmol/L (21-31); CHLORIDE 102 mmol/L (97-110); GLUCOSE 104 mg/dl (70-220); SODIUM 139 mmol/L (135-144)
[2018-06-22 06:34] LABS: PHOSPHORUS 3.3 mg/dl (2.5-4.9)
[2018-06-22 06:34] LABS: MAGNESIUM 2.2 mg/dl (1.7-2.5)
[2018-06-22] MEDS: INSULIN ASPART [NOVOLOG] 3 ML PEN SC ×4 (08:00→20:38)
[2018-06-22] MEDS: LACTOBACILLUS RHAMNOSUS CAP PO ×2 (08:09→20:38)
[2018-06-22] MEDS: BENAZEPRIL 40 MG TAB PO (08:09)
[2018-06-22] MEDS: AMLODIPINE 10 MG TAB PO (08:10)
[2018-06-22] MEDS: ENOXAPARIN 40 MG/0.4 ML SYG SC (08:11)
[2018-06-22] MEDS: CIPROFLOXACIN 500 MG TAB PO (17:32)
[2018-06-22] MEDS: ATORVASTATIN 10 MG TAB PO (20:38)
[2018-06-22] MEDS: traZODone 50 MG TAB PO (20:38)
[2018-06-22] MEDS: LATANOPROST 0.005% 2.5 ML OPH BOTH EYES (20:38)
[2018-06-22] MEDS: ACETAMINOPHEN 325 MG TAB PO (20:41)
[2018-06-22] MEDS: morphine 2 MG INJ IV (20:42)
[2018-06-23] MEDS: ACCU-CHEK XX ×5 (02:00→21:00)
[2018-06-23] MEDS: CIPROFLOXACIN 500 MG TAB PO (06:10)
[2018-06-23 06:37] LABS: ADD MAN DIFF? NO
[2018-06-23 06:43] LABS: WHITE BLOOD COUNT 11.6 10^3/ul (4.8-10.8)
[2018-06-23 06:43] LABS: BASOPHILS % 0.3 % (0.0-2.0); EOSINOPHILS # 0.2 10^3/ul (0.0-0.5); EOSINOPHILS % 1.5 % (0.0-7.0); HEMATOCRIT 29.5 % (42.0-52.0); HEMOGLOBIN 9.7 g/dl (14.0-18.0); LYMPHOCYTES # 1.1 10^3/ul (0.8-2.9); LYMPHOCYTES % 9.1 % (15.0-51.0); MEAN CORPUSCULAR HEMOGLOBIN 30.4 pg (29.0-33.0); MEAN CORPUSCULAR HGB CONC 32.9 g/dl (32.0-37.0); MEAN CORPUSCULAR VOLUME 92.5 fl (82.0-101.0); MEAN PLATELET VOLUME 9.2 fl (7.4-10.4); MONOCYTE # 0.7 10^3/ul (0.3-0.9); MONOCYTES % 6.1 % (0.0-11.0); NEUTROPHIL # 9.5 10^3/ul (1.6-7.5); NEUTROPHILS % 82.4 % (39.0-77.0); PLATELET COUNT 434 10^3/UL (140-415); RED BLOOD COUNT 3.19 10^6/ul (4.70-6.10); RED CELL DISTRIBUTION WIDTH 12.8 % (11.5-14.5)
[2018-06-23 07:05] LABS: ANION GAP 5 (5-13); BLOOD UREA NITROGEN 15 mg/dl (7-20); CARBON DIOXIDE 30 mmol/L (21-31); CHLORIDE 103 mmol/L (97-110); CREATININE 1.16 mg/dl (0.61-1.24); GLUCOSE 100 mg/dl (70-220); POTASSIUM 4.2 mmol/L (3.5-5.1); SODIUM 138 mmol/L (135-144)
[2018-06-23 07:08] LABS: MAGNESIUM 2.2 mg/dl (1.7-2.5)
[2018-06-23 07:08] LABS: PHOSPHORUS 3.8 mg/dl (2.5-4.9)
[2018-06-23] MEDS: INSULIN ASPART [NOVOLOG] 3 ML PEN SC ×4 (08:00→21:00)
[2018-06-23] MEDS: AMLODIPINE 10 MG TAB PO (08:52)
[2018-06-23] MEDS: BENAZEPRIL 40 MG TAB PO (08:53)
[2018-06-23] MEDS: ENOXAPARIN 40 MG/0.4 ML SYG SC (08:55)
[2018-06-23] MEDS: LACTOBACILLUS RHAMNOSUS CAP PO ×2 (09:01→21:18)
[2018-06-23] MEDS: PIPER-TAZO 3.375 GM IV (PMX) 100 ML IVPB ×2 (14:57→21:25)
[2018-06-23] MEDS: ACETAMINOPHEN 325 MG TAB PO (15:17)
[2018-06-23] MEDS: ATORVASTATIN 10 MG TAB PO (21:18)
[2018-06-23] MEDS: LATANOPROST 0.005% 2.5 ML OPH BOTH EYES (21:18)
[2018-06-23] MEDS: traZODone 50 MG TAB PO (21:19)
[2018-06-24] MEDS: ACCU-CHEK XX ×5 (01:53→20:29)
[2018-06-24] MEDS: PIPER-TAZO 3.375 GM IV (PMX) 100 ML IVPB ×3 (05:17→22:01)
[2018-06-24 06:24] LABS: ADD MAN DIFF? NO
[2018-06-24 06:29] LABS: BASOPHILS % 0.4 % (0.0-2.0); EOSINOPHILS # 0.3 10^3/ul (0.0-0.5); EOSINOPHILS % 3.5 % (0.0-7.0); HEMATOCRIT 30.4 % (42.0-52.0); HEMOGLOBIN 9.8 g/dl (14.0-18.0); MEAN CORPUSCULAR HEMOGLOBIN 30.1 pg (29.0-33.0); MEAN CORPUSCULAR HGB CONC 32.2 g/dl (32.0-37.0); MEAN CORPUSCULAR VOLUME 93.3 fl (82.0-101.0); MEAN PLATELET VOLUME 9.3 fl (7.4-10.4); MONOCYTE # 0.5 10^3/ul (0.3-0.9); MONOCYTES % 7.1 % (0.0-11.0); NEUTROPHIL # 5.8 10^3/ul (1.6-7.5); NEUTROPHILS % 75.3 % (39.0-77.0); PLATELET COUNT 477 10^3/UL (140-415); RED BLOOD COUNT 3.26 10^6/ul (4.70-6.10); RED CELL DISTRIBUTION WIDTH 12.8 % (11.5-14.5)
[2018-06-24 06:29] LABS: WHITE BLOOD COUNT 7.6 10^3/ul (4.8-10.8)
[2018-06-24 07:11] LABS: ANION GAP 8 (5-13); BLOOD UREA NITROGEN 16 mg/dl (7-20); CALCIUM 9.3 mg/dl (8.4-10.2); CARBON DIOXIDE 29 mmol/L (21-31); CHLORIDE 105 mmol/L (97-110); GLUCOSE 98 mg/dl (70-220); POTASSIUM 4.2 mmol/L (3.5-5.1); SODIUM 142 mmol/L (135-144)
[2018-06-24 07:22] LABS: MAGNESIUM 2.5 mg/dl (1.7-2.5)
[2018-06-24 07:22] LABS: PHOSPHORUS 4.3 mg/dl (2.5-4.9)
[2018-06-24] MEDS: INSULIN ASPART [NOVOLOG] 3 ML PEN SC ×4 (08:00→20:28)
[2018-06-24 08:05] LABS: ERYTHROCYTE SEDIMENTATION RATE 75 mm/Hr (0-20)
[2018-06-24] MEDS: SOD CHLORIDE 0.9% 1,000 ML IV (08:31)
[2018-06-24] MEDS: ACETYLCYSTEINE 600 MG CAP PO ×2 (08:31→20:25)
[2018-06-24] MEDS: BENAZEPRIL 40 MG TAB PO (08:32)
[2018-06-24] MEDS: AMLODIPINE 10 MG TAB PO (08:32)
[2018-06-24] MEDS: LACTOBACILLUS RHAMNOSUS CAP PO ×2 (08:32→20:23)
[2018-06-24] MEDS: ENOXAPARIN 40 MG/0.4 ML SYG SC (08:35)
[2018-06-24] MEDS: IOHEXOL 14.3 MG(I)/ML (ADULT) BTL PO (12:25)
[2018-06-24] MEDS: IODIXANOL LOCM 100 ML BTL (14:34)
[2018-06-24] MEDS: SOD CHLORIDE 0.9% 100 ML (14:35)
[2018-06-24] MEDS: LATANOPROST 0.005% 2.5 ML OPH BOTH EYES (20:24)
[2018-06-24] MEDS: ATORVASTATIN 10 MG TAB PO (20:25)
[2018-06-24] MEDS: traZODone 50 MG TAB PO (20:25)
[2018-06-24] MEDS: ACETAMINOPHEN 325 MG TAB PO (22:52)
[2018-06-25] MEDS: ACCU-CHEK XX ×5 (01:30→20:55)
[2018-06-25 06:33] LABS: ADD MAN DIFF? NO
[2018-06-25] MEDS: PIPER-TAZO 3.375 GM IV (PMX) 100 ML IVPB ×3 (06:35→22:31)
[2018-06-25 06:39] LABS: BASOPHILS % 0.6 % (0.0-2.0); EOSINOPHILS # 0.3 10^3/ul (0.0-0.5); EOSINOPHILS % 4.7 % (0.0-7.0); HEMOGLOBIN 9.8 g/dl (14.0-18.0); LYMPHOCYTES # 0.7 10^3/ul (0.8-2.9); LYMPHOCYTES % 10.9 % (15.0-51.0); MEAN CORPUSCULAR HEMOGLOBIN 30.2 pg (29.0-33.0); MEAN CORPUSCULAR HGB CONC 32.7 g/dl (32.0-37.0); MEAN CORPUSCULAR VOLUME 92.6 fl (82.0-101.0); MEAN PLATELET VOLUME 9.1 fl (7.4-10.4); MONOCYTE # 0.4 10^3/ul (0.3-0.9); MONOCYTES % 6.6 % (0.0-11.0); NEUTROPHIL # 4.9 10^3/ul (1.6-7.5); NEUTROPHILS % 76.6 % (39.0-77.0); PLATELET COUNT 494 10^3/UL (140-415); RED BLOOD COUNT 3.24 10^6/ul (4.70-6.10); RED CELL DISTRIBUTION WIDTH 12.7 % (11.5-14.5)
[2018-06-25 06:39] LABS: WHITE BLOOD COUNT 6.4 10^3/ul (4.8-10.8)
[2018-06-25 07:09] LABS: ANION GAP 6 (5-13); BLOOD UREA NITROGEN 15 mg/dl (7-20); CALCIUM 8.9 mg/dl (8.4-10.2); CARBON DIOXIDE 26 mmol/L (21-31); CHLORIDE 109 mmol/L (97-110); GLUCOSE 104 mg/dl (70-220); POTASSIUM 3.9 mmol/L (3.5-5.1); SODIUM 141 mmol/L (135-144)
[2018-06-25 07:14] LABS: PHOSPHORUS 3.9 mg/dl (2.5-4.9)
[2018-06-25 07:14] LABS: MAGNESIUM 2.2 mg/dl (1.7-2.5)
[2018-06-25] MEDS: INSULIN ASPART [NOVOLOG] 3 ML PEN SC ×4 (07:56→20:55)
[2018-06-25] MEDS: BENAZEPRIL 40 MG TAB PO (09:06)
[2018-06-25] MEDS: AMLODIPINE 10 MG TAB PO (09:06)
[2018-06-25] MEDS: LACTOBACILLUS RHAMNOSUS CAP PO ×2 (09:06→20:49)
[2018-06-25] MEDS: ACETYLCYSTEINE 600 MG CAP PO (09:06)
[2018-06-25] MEDS: ENOXAPARIN 40 MG/0.4 ML SYG SC (09:09)
[2018-06-25] MEDS: traZODone 50 MG TAB PO (20:49)
[2018-06-25] MEDS: ATORVASTATIN 10 MG TAB PO (20:49)
[2018-06-25] MEDS: LATANOPROST 0.005% 2.5 ML OPH BOTH EYES (20:49)
[2018-06-26] MEDS: ACCU-CHEK XX ×5 (02:00→21:00)
[2018-06-26] MEDS: PIPER-TAZO 3.375 GM IV (PMX) 100 ML IVPB ×3 (05:36→21:49)
[2018-06-26 06:10] LABS: ADD MAN DIFF? NO
[2018-06-26 06:16] LABS: WHITE BLOOD COUNT 6.6 10^3/ul (4.8-10.8)
[2018-06-26 06:16] LABS: BASOPHILS % 0.5 % (0.0-2.0); EOSINOPHILS # 0.3 10^3/ul (0.0-0.5); HEMATOCRIT 31.6 % (42.0-52.0); HEMOGLOBIN 10.2 g/dl (14.0-18.0); MEAN CORPUSCULAR HGB CONC 32.3 g/dl (32.0-37.0); MEAN CORPUSCULAR VOLUME 92.9 fl (82.0-101.0); MONOCYTE # 0.5 10^3/ul (0.3-0.9); MONOCYTES % 7.8 % (0.0-11.0); NEUTROPHIL # 4.7 10^3/ul (1.6-7.5); NEUTROPHILS % 71.4 % (39.0-77.0); PLATELET COUNT 567 10^3/UL (140-415); RED CELL DISTRIBUTION WIDTH 12.8 % (11.5-14.5)
[2018-06-26 06:37] LABS: INR 1.17; PT RATIO 1.2
[2018-06-26 06:38] LABS: PARTIAL THROMBOPLASTIN TIME 35.5 Sec (23.0-35.0)
[2018-06-26 07:11] LABS: ALANINE AMINOTRANSFERASE 49 IU/L (13-69); ALBUMIN 3.3 g/dl (3.3-4.9); ALBUMIN/GLOBULIN RATIO 0.91; ALKALINE PHOSPHATASE 72 IU/L (42-121); ANION GAP 9 (5-13); ASPARTATE AMINO TRANSFERASE 37 IU/L (15-46); BILIRUBIN,INDIRECT 0.2 mg/dl (0-1.1); BILIRUBIN,TOTAL 0.2 mg/dl (0.2-1.3); BLOOD UREA NITROGEN 16 mg/dl (7-20); CALCIUM 9.3 mg/dl (8.4-10.2); CARBON DIOXIDE 27 mmol/L (21-31); CHLORIDE 106 mmol/L (97-110); CREATININE 1.21 mg/dl (0.61-1.24); GLUCOSE 99 mg/dl (70-220); POTASSIUM 4.2 mmol/L (3.5-5.1); SODIUM 142 mmol/L (135-144); TOTAL PROTEIN 6.9 g/dl (6.1-8.1)
[2018-06-26] MEDS: INSULIN ASPART [NOVOLOG] 3 ML PEN SC ×4 (07:58→21:00)
[2018-06-26] MEDS: BENAZEPRIL 40 MG TAB PO (09:05)
[2018-06-26] MEDS: LACTOBACILLUS RHAMNOSUS CAP PO ×2 (09:05→21:49)
[2018-06-26] MEDS: AMLODIPINE 10 MG TAB PO (09:05)
[2018-06-26] MEDS: ENOXAPARIN 40 MG/0.4 ML SYG SC (09:06)
[2018-06-26] MEDS: ATORVASTATIN 10 MG TAB PO (21:49)
[2018-06-26] MEDS: traZODone 50 MG TAB PO (21:49)
[2018-06-26] MEDS: LATANOPROST 0.005% 2.5 ML OPH BOTH EYES (21:52)
[2018-06-27] MEDS: ACCU-CHEK XX ×5 (02:00→20:35)
[2018-06-27] MEDS: PIPER-TAZO 3.375 GM IV (PMX) 100 ML IVPB ×3 (06:33→21:49)
[2018-06-27] MEDS: INSULIN ASPART [NOVOLOG] 3 ML PEN SC ×4 (08:00→20:35)
[2018-06-27] MEDS: LACTOBACILLUS RHAMNOSUS CAP PO ×2 (08:50→20:33)
[2018-06-27] MEDS: AMLODIPINE 10 MG TAB PO (08:51)
[2018-06-27] MEDS: BENAZEPRIL 40 MG TAB PO (08:52)
[2018-06-27] MEDS: ENOXAPARIN 40 MG/0.4 ML SYG SC (08:55)
[2018-06-27 12:02] LABS: PROCALCITONIN 0.13 ng/mL (<0.10)
[2018-06-27] MEDS: LATANOPROST 0.005% 2.5 ML OPH BOTH EYES (20:33)
[2018-06-27] MEDS: ATORVASTATIN 10 MG TAB PO (20:33)
[2018-06-27] MEDS: traZODone 50 MG TAB PO (20:33)
[2018-06-28] MEDS: ACCU-CHEK XX ×5 (02:00→20:32)
[2018-06-28] MEDS: PIPER-TAZO 3.375 GM IV (PMX) 100 ML IVPB ×3 (06:24→21:48)
[2018-06-28] MEDS: INSULIN ASPART [NOVOLOG] 3 ML PEN SC ×4 (08:00→20:32)
[2018-06-28] MEDS: AMLODIPINE 10 MG TAB PO (08:50)
[2018-06-28] MEDS: BENAZEPRIL 40 MG TAB PO (08:51)
[2018-06-28] MEDS: ENOXAPARIN 40 MG/0.4 ML SYG SC (09:00)
[2018-06-28] MEDS: LACTOBACILLUS RHAMNOSUS CAP PO ×2 (09:00→20:32)
[2018-06-28] MEDS: FENTAnyl 50 MCG/ML VIAL (12:45)
[2018-06-28] MEDS: LIDOCAINE 1% (MDV) 20 ML INJ (12:45)
[2018-06-28] MEDS: traZODone 50 MG TAB PO (20:32)
[2018-06-28] MEDS: ATORVASTATIN 10 MG TAB PO (20:32)
[2018-06-28] MEDS: LATANOPROST 0.005% 2.5 ML OPH BOTH EYES (20:32)
[2018-06-28] MEDS: traMADol 50 MG TAB PO (20:32)
[2018-06-29] MEDS: ACCU-CHEK XX ×5 (02:00→21:00)
[2018-06-29] MEDS: PIPER-TAZO 3.375 GM IV (PMX) 100 ML IVPB ×3 (06:00→22:27)
[2018-06-29] MEDS: INSULIN ASPART [NOVOLOG] 3 ML PEN SC ×4 (07:41→20:58)
[2018-06-29] MEDS: AMLODIPINE 10 MG TAB PO (08:14)
[2018-06-29] MEDS: LACTOBACILLUS RHAMNOSUS CAP PO ×2 (08:15→20:59)
[2018-06-29] MEDS: BENAZEPRIL 40 MG TAB PO (08:15)
[2018-06-29] MEDS: ENOXAPARIN 40 MG/0.4 ML SYG SC (08:16)
[2018-06-29] MEDS: ACETAMINOPHEN 325 MG TAB PO (17:57)
[2018-06-29] MEDS: LATANOPROST 0.005% 2.5 ML OPH BOTH EYES (20:59)
[2018-06-29] MEDS: traZODone 50 MG TAB PO (20:59)
[2018-06-29] MEDS: ATORVASTATIN 10 MG TAB PO (20:59)
[2018-06-30] MEDS: ACCU-CHEK XX ×5 (02:00→21:00)
[2018-06-30] MEDS: traMADol 50 MG TAB PO (03:56)
[2018-06-30] MEDS: PIPER-TAZO 3.375 GM IV (PMX) 100 ML IVPB ×3 (05:46→21:14)
[2018-06-30] MEDS: INSULIN ASPART [NOVOLOG] 3 ML PEN SC ×4 (08:00→21:00)
[2018-06-30] MEDS: LACTOBACILLUS RHAMNOSUS CAP PO ×2 (08:55→21:10)
[2018-06-30] MEDS: BENAZEPRIL 40 MG TAB PO (08:55)
[2018-06-30] MEDS: AMLODIPINE 10 MG TAB PO (08:56)
[2018-06-30] MEDS: ENOXAPARIN 40 MG/0.4 ML SYG SC (09:00)
[2018-06-30] MEDS: LIDOCAINE 1% (MPF) 5 ML VIAL SC (12:17)
[2018-06-30] MEDS: ATORVASTATIN 10 MG TAB PO (21:10)
[2018-06-30] MEDS: traZODone 50 MG TAB PO (21:13)
[2018-06-30] MEDS: LATANOPROST 0.005% 2.5 ML OPH BOTH EYES (21:44)
[2018-07-01] MEDS: ACCU-CHEK XX ×5 (02:00→21:04)
[2018-07-01] MEDS: PIPER-TAZO 3.375 GM IV (PMX) 100 ML IVPB ×3 (06:00→20:59)
[2018-07-01 06:13] LABS: ADD MAN DIFF? NO
[2018-07-01 06:20] LABS: WHITE BLOOD COUNT 5.6 10^3/ul (4.8-10.8)
[2018-07-01 06:20] LABS: BASOPHIL # 0.1 10^3/ul (0.0-0.1); BASOPHILS % 0.9 % (0.0-2.0); EOSINOPHILS # 0.2 10^3/ul (0.0-0.5); EOSINOPHILS % 4.3 % (0.0-7.0); HEMATOCRIT 30.2 % (42.0-52.0); HEMOGLOBIN 9.8 g/dl (14.0-18.0); LYMPHOCYTES # 1.1 10^3/ul (0.8-2.9); LYMPHOCYTES % 20.5 % (15.0-51.0); MEAN CORPUSCULAR HEMOGLOBIN 30.1 pg (29.0-33.0); MEAN CORPUSCULAR HGB CONC 32.5 g/dl (32.0-37.0); MEAN CORPUSCULAR VOLUME 92.6 fl (82.0-101.0); MONOCYTE # 0.5 10^3/ul (0.3-0.9); NEUTROPHIL # 3.6 10^3/ul (1.6-7.5); NEUTROPHILS % 64.9 % (39.0-77.0); PLATELET COUNT 466 10^3/UL (140-415); RED BLOOD COUNT 3.26 10^6/ul (4.70-6.10)
[2018-07-01 06:48] LABS: ALANINE AMINOTRANSFERASE 27 IU/L (13-69); ALBUMIN 3.5 g/dl (3.3-4.9); ALBUMIN/GLOBULIN RATIO 0.97; ALKALINE PHOSPHATASE 59 IU/L (42-121); ANION GAP 8 (5-13); ASPARTATE AMINO TRANSFERASE 19 IU/L (15-46); BILIRUBIN,INDIRECT 0.3 mg/dl (0-1.1); BILIRUBIN,TOTAL 0.3 mg/dl (0.2-1.3); BLOOD UREA NITROGEN 17 mg/dl (7-20); CALCIUM 9.6 mg/dl (8.4-10.2); CARBON DIOXIDE 26 mmol/L (21-31); CHLORIDE 109 mmol/L (97-110); CREATININE 1.26 mg/dl (0.61-1.24); GLUCOSE 90 mg/dl (70-220); POTASSIUM 4.1 mmol/L (3.5-5.1); SODIUM 143 mmol/L (135-144); TOTAL PROTEIN 7.1 g/dl (6.1-8.1)
[2018-07-01 06:50] LABS: PHOSPHORUS 3.8 mg/dl (2.5-4.9)
[2018-07-01 06:50] LABS: MAGNESIUM 2.3 mg/dl (1.7-2.5)
[2018-07-01] MEDS: INSULIN ASPART [NOVOLOG] 3 ML PEN SC ×4 (07:58→21:00)
[2018-07-01] MEDS: BENAZEPRIL 40 MG TAB PO (08:38)
[2018-07-01] MEDS: AMLODIPINE 10 MG TAB PO (08:38)
[2018-07-01] MEDS: LACTOBACILLUS RHAMNOSUS CAP PO ×2 (08:38→20:59)
[2018-07-01] MEDS: ENOXAPARIN 40 MG/0.4 ML SYG SC (08:39)
[2018-07-01] MEDS: traZODone 50 MG TAB PO (20:59)
[2018-07-01] MEDS: ATORVASTATIN 10 MG TAB PO (20:59)
[2018-07-01] MEDS: LATANOPROST 0.005% 2.5 ML OPH BOTH EYES (20:59)
[2018-07-01] MEDS: DIPHENHYDRAMINE 25 MG CAP PO (22:04)
[2018-07-02] MEDS: ACCU-CHEK XX ×5 (01:43→21:00)
[2018-07-02] MEDS: DIPHENHYDRAMINE 25 MG CAP PO (06:10)
[2018-07-02] MEDS: PIPER-TAZO 3.375 GM IV (PMX) 100 ML IVPB (06:11)
[2018-07-02 06:48] LABS: ADD MAN DIFF? NO
[2018-07-02 06:55] LABS: WHITE BLOOD COUNT 5.5 10^3/ul (4.8-10.8)
[2018-07-02 06:55] LABS: BASOPHIL # 0.1 10^3/ul (0.0-0.1); BASOPHILS % 0.9 % (0.0-2.0); EOSINOPHILS # 0.3 10^3/ul (0.0-0.5); EOSINOPHILS % 4.9 % (0.0-7.0); HEMATOCRIT 31.4 % (42.0-52.0); HEMOGLOBIN 10.2 g/dl (14.0-18.0); LYMPHOCYTES # 0.9 10^3/ul (0.8-2.9); MEAN CORPUSCULAR HEMOGLOBIN 30.3 pg (29.0-33.0); MEAN CORPUSCULAR HGB CONC 32.5 g/dl (32.0-37.0); MEAN CORPUSCULAR VOLUME 93.2 fl (82.0-101.0); MEAN PLATELET VOLUME 9.2 fl (7.4-10.4); MONOCYTE # 0.4 10^3/ul (0.3-0.9); MONOCYTES % 7.5 % (0.0-11.0); NEUTROPHIL # 3.8 10^3/ul (1.6-7.5); NEUTROPHILS % 69.5 % (39.0-77.0); PLATELET COUNT 473 10^3/UL (140-415); RED BLOOD COUNT 3.37 10^6/ul (4.70-6.10); RED CELL DISTRIBUTION WIDTH 13.1 % (11.5-14.5)
[2018-07-02 07:13] LABS: PROTIME 15.3 Sec (11.9-14.9); PT RATIO 1.2
[2018-07-02 07:14] LABS: PARTIAL THROMBOPLASTIN TIME 32.6 Sec (23.0-35.0)
[2018-07-02 07:51] LABS: ALANINE AMINOTRANSFERASE 25 IU/L (13-69); ALBUMIN 3.6 g/dl (3.3-4.9); ALKALINE PHOSPHATASE 59 IU/L (42-121); ANION GAP 8 (5-13); ASPARTATE AMINO TRANSFERASE 23 IU/L (15-46); BILIRUBIN,INDIRECT 0.3 mg/dl (0-1.1); BILIRUBIN,TOTAL 0.3 mg/dl (0.2-1.3); BLOOD UREA NITROGEN 20 mg/dl (7-20); CALCIUM 9.5 mg/dl (8.4-10.2); CARBON DIOXIDE 26 mmol/L (21-31); CHLORIDE 109 mmol/L (97-110); CREATININE 1.38 mg/dl (0.61-1.24); GLUCOSE 93 mg/dl (70-220); POTASSIUM 3.9 mmol/L (3.5-5.1); SODIUM 143 mmol/L (135-144); TOTAL PROTEIN 7.2 g/dl (6.1-8.1)
[2018-07-02] MEDS: INSULIN ASPART [NOVOLOG] 3 ML PEN SC ×4 (08:00→21:00)
[2018-07-02] MEDS: AMLODIPINE 10 MG TAB PO (09:14)
[2018-07-02] MEDS: BENAZEPRIL 40 MG TAB PO (09:15)
[2018-07-02] MEDS: LACTOBACILLUS RHAMNOSUS CAP PO ×2 (09:17→21:53)
[2018-07-02] MEDS: LORATADINE 10 MG TAB PO (15:39)
[2018-07-02] MEDS: ATORVASTATIN 10 MG TAB PO (21:53)
[2018-07-02] MEDS: traZODone 50 MG TAB PO (21:53)
[2018-07-02] MEDS: LATANOPROST 0.005% 2.5 ML OPH BOTH EYES (21:56)
[2018-07-03] MEDS: ACCU-CHEK XX ×5 (02:00→21:00)
[2018-07-03 06:43] LABS: ADD MAN DIFF? NO
[2018-07-03 06:46] LABS: WHITE BLOOD COUNT 5.3 10^3/ul (4.8-10.8)
[2018-07-03 06:46] LABS: BASOPHIL # 0.1 10^3/ul (0.0-0.1); BASOPHILS % 0.9 % (0.0-2.0); EOSINOPHILS # 0.3 10^3/ul (0.0-0.5); EOSINOPHILS % 6.1 % (0.0-7.0); HEMATOCRIT 30.5 % (42.0-52.0); HEMOGLOBIN 9.9 g/dl (14.0-18.0); LYMPHOCYTES # 0.9 10^3/ul (0.8-2.9); LYMPHOCYTES % 16.5 % (15.0-51.0); MEAN CORPUSCULAR HGB CONC 32.5 g/dl (32.0-37.0); MEAN CORPUSCULAR VOLUME 92.4 fl (82.0-101.0); MEAN PLATELET VOLUME 9.3 fl (7.4-10.4); MONOCYTE # 0.5 10^3/ul (0.3-0.9); MONOCYTES % 8.5 % (0.0-11.0); NEUTROPHIL # 3.6 10^3/ul (1.6-7.5); NEUTROPHILS % 67.6 % (39.0-77.0); PLATELET COUNT 437 10^3/UL (140-415); RED CELL DISTRIBUTION WIDTH 13.1 % (11.5-14.5)
[2018-07-03 07:09] LABS: ANION GAP 9 (5-13); BLOOD UREA NITROGEN 21 mg/dl (7-20); CALCIUM 9.3 mg/dl (8.4-10.2); CARBON DIOXIDE 26 mmol/L (21-31); CHLORIDE 107 mmol/L (97-110); CREATININE 1.26 mg/dl (0.61-1.24); GLUCOSE 88 mg/dl (70-220); POTASSIUM 4.1 mmol/L (3.5-5.1); SODIUM 142 mmol/L (135-144)
[2018-07-03 07:26] LABS: MAGNESIUM 2.2 mg/dl (1.7-2.5)
[2018-07-03] MEDS: INSULIN ASPART [NOVOLOG] 3 ML PEN SC ×4 (08:00→21:00)
[2018-07-03] MEDS: BENAZEPRIL 40 MG TAB PO (08:39)
[2018-07-03] MEDS: LACTOBACILLUS RHAMNOSUS CAP PO ×2 (08:39→21:45)
[2018-07-03] MEDS: ENOXAPARIN 40 MG/0.4 ML SYG SC (08:39)
[2018-07-03] MEDS: AMLODIPINE 10 MG TAB PO (08:40)
[2018-07-03] MEDS: LORATADINE 10 MG TAB PO (08:40)
[2018-07-03] MEDS: LIDOCAINE 100 MG SYRINGE (11:06)
[2018-07-03] MEDS: morphine 2 MG INJ (11:10)
[2018-07-03] MEDS: IODIXANOL LOCM 100 ML BTL (11:25)
[2018-07-03] MEDS: traMADol 50 MG TAB PO ×2 (14:04→21:45)
[2018-07-03] MEDS: SOD CHLORIDE 0.9% 100 ML (19:00)
[2018-07-03] MEDS: LATANOPROST 0.005% 2.5 ML OPH BOTH EYES (21:44)
[2018-07-03] MEDS: traZODone 50 MG TAB PO (21:45)
[2018-07-03] MEDS: ATORVASTATIN 10 MG TAB PO (21:45)
[2018-07-04] MEDS: ACCU-CHEK XX ×5 (02:00→21:00)
[2018-07-04] MEDS: INSULIN ASPART [NOVOLOG] 3 ML PEN SC ×4 (08:00→21:00)
[2018-07-04 08:23] LABS: ADD MAN DIFF? NO
[2018-07-04 08:34] LABS: BASOPHIL # 0.1 10^3/ul (0.0-0.1); BASOPHILS % 1.2 % (0.0-2.0); EOSINOPHILS # 0.4 10^3/ul (0.0-0.5); EOSINOPHILS % 6.8 % (0.0-7.0); HEMATOCRIT 33.3 % (42.0-52.0); HEMOGLOBIN 10.8 g/dl (14.0-18.0); LYMPHOCYTES # 1.4 10^3/ul (0.8-2.9); LYMPHOCYTES % 24.4 % (15.0-51.0); MEAN CORPUSCULAR HEMOGLOBIN 30.3 pg (29.0-33.0); MEAN CORPUSCULAR HGB CONC 32.4 g/dl (32.0-37.0); MEAN CORPUSCULAR VOLUME 93.3 fl (82.0-101.0); MEAN PLATELET VOLUME 9.6 fl (7.4-10.4); MONOCYTE # 0.5 10^3/ul (0.3-0.9); MONOCYTES % 8.9 % (0.0-11.0); NEUTROPHIL # 3.3 10^3/ul (1.6-7.5); NEUTROPHILS % 58.3 % (39.0-77.0); PLATELET COUNT 451 10^3/UL (140-415); RED BLOOD COUNT 3.57 10^6/ul (4.70-6.10)
[2018-07-04 08:34] LABS: WHITE BLOOD COUNT 5.6 10^3/ul (4.8-10.8)
[2018-07-04 08:42] LABS: ANION GAP 12 (5-13); BLOOD UREA NITROGEN 20 mg/dl (7-20); CALCIUM 9.6 mg/dl (8.4-10.2); CARBON DIOXIDE 25 mmol/L (21-31); CHLORIDE 104 mmol/L (97-110); CREATININE 1.28 mg/dl (0.61-1.24); GLUCOSE 94 mg/dl (70-220); POTASSIUM 4.2 mmol/L (3.5-5.1); SODIUM 141 mmol/L (135-144)
[2018-07-04 08:48] LABS: MAGNESIUM 2.1 mg/dl (1.7-2.5)
[2018-07-04 08:48] LABS: PHOSPHORUS 4.2 mg/dl (2.5-4.9)
[2018-07-04] MEDS: BENAZEPRIL 40 MG TAB PO (09:52)
[2018-07-04] MEDS: LACTOBACILLUS RHAMNOSUS CAP PO ×2 (09:52→21:04)
[2018-07-04] MEDS: AMLODIPINE 10 MG TAB PO (09:53)
[2018-07-04] MEDS: LORATADINE 10 MG TAB PO (09:53)
[2018-07-04] MEDS: ENOXAPARIN 40 MG/0.4 ML SYG SC (09:56)
[2018-07-04] MEDS: traMADol 50 MG TAB PO (16:44)
[2018-07-04] MEDS: traZODone 50 MG TAB PO (21:04)
[2018-07-04] MEDS: ATORVASTATIN 10 MG TAB PO (21:04)
[2018-07-04] MEDS: LATANOPROST 0.005% 2.5 ML OPH BOTH EYES (21:05)
[2018-07-04] MEDS: ACETAMINOPHEN 325 MG TAB PO (21:09)
[2018-07-05] MEDS: ACCU-CHEK XX ×5 (01:10→21:00)
[2018-07-05 07:21] LABS: ADD MAN DIFF? NO
[2018-07-05 07:29] LABS: WHITE BLOOD COUNT 8.2 10^3/ul (4.8-10.8)
[2018-07-05 07:29] LABS: BASOPHIL # 0.1 10^3/ul (0.0-0.1); BASOPHILS % 0.8 % (0.0-2.0); EOSINOPHILS # 0.3 10^3/ul (0.0-0.5); EOSINOPHILS % 4.1 % (0.0-7.0); HEMATOCRIT 33.8 % (42.0-52.0); HEMOGLOBIN 10.8 g/dl (14.0-18.0); LYMPHOCYTES # 1.6 10^3/ul (0.8-2.9); LYMPHOCYTES % 19.5 % (15.0-51.0); MEAN CORPUSCULAR HEMOGLOBIN 29.7 pg (29.0-33.0); MEAN CORPUSCULAR VOLUME 92.9 fl (82.0-101.0); MEAN PLATELET VOLUME 9.5 fl (7.4-10.4); MONOCYTE # 0.6 10^3/ul (0.3-0.9); MONOCYTES % 7.5 % (0.0-11.0); NEUTROPHIL # 5.6 10^3/ul (1.6-7.5); NEUTROPHILS % 67.9 % (39.0-77.0); PLATELET COUNT 449 10^3/UL (140-415); RED BLOOD COUNT 3.64 10^6/ul (4.70-6.10); RED CELL DISTRIBUTION WIDTH 12.9 % (11.5-14.5)
[2018-07-05 07:53] LABS: MAGNESIUM 2.2 mg/dl (1.7-2.5)
[2018-07-05 07:53] LABS: PHOSPHORUS 4.2 mg/dl (2.5-4.9)
[2018-07-05 07:55] LABS: ANION GAP 12 (5-13); BLOOD UREA NITROGEN 22 mg/dl (7-20); CALCIUM 9.7 mg/dl (8.4-10.2); CARBON DIOXIDE 26 mmol/L (21-31); CHLORIDE 103 mmol/L (97-110); GLUCOSE 95 mg/dl (70-220); SODIUM 141 mmol/L (135-144)
[2018-07-05] MEDS: INSULIN ASPART [NOVOLOG] 3 ML PEN SC ×4 (08:00→20:56)
[2018-07-05] MEDS: LACTOBACILLUS RHAMNOSUS CAP PO ×2 (08:26→20:56)
[2018-07-05] MEDS: LORATADINE 10 MG TAB PO (08:26)
[2018-07-05] MEDS: BENAZEPRIL 40 MG TAB PO (08:27)
[2018-07-05] MEDS: AMLODIPINE 10 MG TAB PO (08:28)
[2018-07-05] MEDS: ENOXAPARIN 40 MG/0.4 ML SYG SC (08:29)
[2018-07-05] MEDS: traZODone 50 MG TAB PO (20:55)
[2018-07-05] MEDS: ATORVASTATIN 10 MG TAB PO (20:56)
[2018-07-05] MEDS: ACETAMINOPHEN 325 MG TAB PO (20:56)
[2018-07-05] MEDS: LATANOPROST 0.005% 2.5 ML OPH BOTH EYES (23:16)
[2018-07-06] MEDS: ACCU-CHEK XX ×3 (02:00→10:49)
[2018-07-06 06:29] LABS: ADD MAN DIFF? NO
[2018-07-06 06:30] LABS: HEMATOCRIT 30.5 % (42.0-52.0); HEMOGLOBIN 9.9 g/dl (14.0-18.0); RED BLOOD COUNT 3.28 10^6/ul (4.70-6.10)
[2018-07-06 06:30] LABS: WHITE BLOOD COUNT 9.3 10^3/ul (4.8-10.8)
[2018-07-06 06:31] LABS: BASOPHIL # 0.1 10^3/ul (0.0-0.1); BASOPHILS % 0.5 % (0.0-2.0); EOSINOPHILS # 0.2 10^3/ul (0.0-0.5); EOSINOPHILS % 1.8 % (0.0-7.0); LYMPHOCYTES # 0.8 10^3/ul (0.8-2.9); LYMPHOCYTES % 8.1 % (15.0-51.0); MEAN CORPUSCULAR HEMOGLOBIN 30.2 pg (29.0-33.0); MEAN CORPUSCULAR HGB CONC 32.5 g/dl (32.0-37.0); MEAN PLATELET VOLUME 9.8 fl (7.4-10.4); MONOCYTE # 0.6 10^3/ul (0.3-0.9); MONOCYTES % 6.1 % (0.0-11.0); NEUTROPHIL # 7.7 10^3/ul (1.6-7.5); NEUTROPHILS % 83.2 % (39.0-77.0); PLATELET COUNT 362 10^3/UL (140-415); RED CELL DISTRIBUTION WIDTH 13.1 % (11.5-14.5)
[2018-07-06 06:56] LABS: ANION GAP 10 (5-13); BLOOD UREA NITROGEN 21 mg/dl (7-20); CALCIUM 9.3 mg/dl (8.4-10.2); CARBON DIOXIDE 26 mmol/L (21-31); CHLORIDE 105 mmol/L (97-110); GLUCOSE 90 mg/dl (70-220); POTASSIUM 3.9 mmol/L (3.5-5.1); SODIUM 141 mmol/L (135-144)
[2018-07-06 07:02] LABS: PHOSPHORUS 3.7 mg/dl (2.5-4.9)
[2018-07-06] MEDS: INSULIN ASPART [NOVOLOG] 3 ML PEN SC ×2 (08:00→11:39)
[2018-07-06] MEDS: ACETAMINOPHEN 325 MG TAB PO (08:14)
[2018-07-06] MEDS: LACTOBACILLUS RHAMNOSUS CAP PO (08:14)
[2018-07-06] MEDS: ENOXAPARIN 40 MG/0.4 ML SYG SC (08:16)
[2018-07-06] MEDS: LORATADINE 10 MG TAB PO (08:16)
[2018-07-06] MEDS: AMLODIPINE 10 MG TAB PO (08:18)
[2018-07-06] MEDS: BENAZEPRIL 40 MG TAB PO (08:18)
== END 2018-07-06 13:30 | disposition home or self-care (01) ==
LOC: PP2 06-19 23:45 → E/R 09:39 → 5EC 16:39
PROVIDERS: Family Medicine
PROC: 0W9F30Z Drainage of Abdominal Wall with Drainage Device, Percutaneous Approach (ICD-10-PCS; principal; 2018-06-19)
PROC: 0WPFX0Z Removal of Drainage Device from Abdominal Wall, External Approach (ICD-10-PCS; 2018-06-22)
PROC: 0W9F30Z Drainage of Abdominal Wall with Drainage Device, Percutaneous Approach (ICD-10-PCS; 2018-06-28)
PROC: 02HV33Z Insertion of Infusion Device into Superior Vena Cava, Percutaneous Approach (ICD-10-PCS; 2018-06-30)
PROC: 0WPFX0Z Removal of Drainage Device from Abdominal Wall, External Approach (ICD-10-PCS; 2018-07-03)
PROC: 0W9F30Z Drainage of Abdominal Wall with Drainage Device, Percutaneous Approach (ICD-10-PCS; 2018-07-03)
PROC: 0WPFX0Z Removal of Drainage Device from Abdominal Wall, External Approach (ICD-10-PCS; 2018-07-05)
DX: A41.9 Sepsis, unspecified organism (principal); N17.9 Acute kidney failure, unspecified; L02.211 Cutaneous abscess of abdominal wall; D64.9 Anemia, unspecified; E11.22 Type 2 diabetes mellitus with diabetic chronic kidney disease; E66.9 Obesity, unspecified; E78.5 Hyperlipidemia, unspecified; H40.9 Unspecified glaucoma; I12.9 Hypertensive chronic kidney disease with stage 1 through stage 4 chronic kidney disease, or unspecified chronic kidney disease; N18.9 Chronic kidney disease, unspecified; N52.9 Male erectile dysfunction, unspecified; M75.102 Unspecified rotator cuff tear or rupture of left shoulder, not specified as traumatic; M19.012 Primary osteoarthritis, left shoulder; L27.0 Generalized skin eruption due to drugs and medicaments taken internally; T36.0X5A Adverse effect of penicillins, initial encounter; B95.61 Methicillin susceptible Staphylococcus aureus infection as the cause of diseases classified elsewhere; Z96.651 Presence of right artificial knee joint; Z68.31 Body mass index [BMI] 31.0-31.9, adult; Z87.891 Personal history of nicotine dependence; Z85.46 Personal history of malignant neoplasm of prostate; Z90.79 Acquired absence of other genital organ(s); Z90.49 Acquired absence of other specified parts of digestive tract; Z79.84 Long term (current) use of oral hypoglycemic drugs
CPT/HCPCS: 36415; 36569; 36589; 71045; 71250; 73030; 73221; 74018; 74176; 74177; 75989; 76775; 76937; 77012; 78806; 80048; 80053; 80061; 80202; 81003; 82962; 83036; 83605; 83735; 84100; 84145; 84153; 84154; 84443; 84484; 85025; 85378; 85610; 85651; 85730; 86140; 86703; 86704; 86709; 86788; 86789; 86803; 87040-91; 87070; 87075; 87086; 87207; 87340; 87400; 89051; 93005; 93306; 93971; 96374; 99285-25

== ENCOUNTER 2018-09-12 22:08 | Emergency (ER) | payer MEDICARE, OTHER ==
[2018-09-13] MEDS: DIPHTH/TET/ACEL PERTUSS (ADULT) 0.5 ML VIAL IM* (00:07)
[2018-09-13] MEDS: KETOROLAC 15 MG INJ IM (00:07)
== END 2018-09-13 00:20 | disposition home or self-care (01) ==
LOC: E/R 09-13 00:20
DX: S01.21XA Laceration without foreign body of nose, initial encounter (principal); S09.90XA Unspecified injury of head, initial encounter; S89.92XA Unspecified injury of left lower leg, initial encounter; I10 Essential (primary) hypertension; W18.30XA Fall on same level, unspecified, initial encounter; Y92.9 Unspecified place or not applicable; Z23 Encounter for immunization
CPT/HCPCS: 12011; 70450; 72125; 90471; 90715; 96372; 99285-25